=== PATIENT | female | born 1990 | race Two or more races ===

== ENCOUNTER 2017-09-30 14:17 | Emergency (ER) | payer MEDICAID ==
[~2017-09-30] VITALS: Ht 160 cm; Wt 98.9 kg
[2017-09-30 15:10] VITALS: BP 136/77
--- NOTE | 2017-09-30 15:18 | Emergency Room Report ---
History of Present Illness General Chief Complaint: Chest Pain Source: Patient Present Illness HPI 27-year-old female walks in with chief complaint of intermittent substernal sharp chest pain, 5/10, occurring intermittently since yesterday Pain started at work, worse with movement, reproducible No body aches, no fever or chills, no sick contacts, no headache no Recent trauma No history of asthma or COPD Not take any OTC meds Allergies: Coded Allergies: No Known Allergies (Unverified , 09/30/17) Patient History Past Medical History: none Past Surgical History: none Pertinent Family History: none Social History: Denies: smoking, alcohol use, drug use Last Menstrual Period: 09/15/2017 Now: No Immunizations: UTD Reviewed Nursing Documentation: PMH: Agreed, PSxH: Agreed Nursing Documentation-PMH Past Medical History: No Stated History Review of Systems All Other Systems: negative except mentioned in HPI Physical Exam Vital Signs Date Time Temp Pulse Resp B/P (MAP) Pulse Ox O2 Delivery O2 Flow Rate FiO2 09/30/17 14:20 97.9 103 18 130/70 98 Room Air Sp02 EP Interpretation: reviewed, normal General Appearance: normal inspection, well appearing, no apparent distress, alert, GCS 15, non-toxic Head: normocephalic, atraumatic Eyes: bilateral eye PERRL, bilateral eye EOMI ENT: normal ENT inspection, hearing grossly normal, normal pharynx, no angioedema, normal voice, TMs + canals normal, uvula midline, moist mucus membranes Neck: normal inspection, full range of motion, supple, thyroid normal, no meningismus, no bony tend Respiratory: normal inspection, lungs clear, normal breath sounds, no rhonchi, no respiratory distress, no retraction, no accessory muscle use, no wheezing, speaking full sentences, other - chest pain reproducible, chest symmetrical Cardiovascular #1: regular rate, rhythm, no edema, no JVD, normal capillary refill Gastrointestinal: normal inspection, normal bowel sounds, non tender, soft, no mass, no peritonitis, non-distended, no guarding, no hernia, no pulsatile mass Genitourinary: no CVA tenderness Musculoskeletal: normal inspection, back normal, normal range of motion, no calf tenderness, pelvis stable, Tete's Sign negative Neurologic: normal inspection, alert, oriented x3, responsive, merit system director III-XII nml as tested, motor strength/tone normal, cerebellar normal, normal gait, speech normal Psychiatric: normal inspection, judgement/insight normal, mood/affect normal, no suicidal/homicidal ideation, no delusions Skin: normal inspection, normal color, no rash Lymphatic: normal inspection, no adenopathy Medical Decision Making Diagnostic Impression: Primary Impression: Chest wall pain ER Course 27-year-old female with chest pain for 2 days Unlikely ACS or PE given well appearance, chest pain very reproducible, worse with movement, no tachypnea, no tachycardia, no hypoxia, no history of CAD risk factors ECG without ischemia Chest x-ray negative for pneumonia or pneumothorax Symptoms improved with NSAIDs ER course: Patient has remained stable during ED stay. Patient is to be discharged to home. Prescriptions given are motrin Patient is instructed to follow up with their primary care doctor within 5 days. Strict return precautions discussed with patient such as fever, chills, worsening/severe pain, nausea, vomiting, which may indicate severe illness. Patient verbalizes understanding and agrees with plan. Please note that this Emergency Department Report was dictated using [employer] operator assistant technology software, occasionally this can lead to erroneous entry secondary to interpretation by the dictation equipment EKG Diagnostic Results Rate: tachycardiac Rhythm: NSR ST Segments: no acute changes ASA given to the pt in ED: No Chest X-Ray Diagnostic Results Chest X-Ray Diagnostic Results : Chest X-Ray Ordered: Yes # of Views/Limited/Complete: 1 View Indication: Chest Pain EP Interpretation: Yes Interpretation: no consolidation, no effusion, no pneumothorax, no acute cardiopulmonary disease Impression: No acute disease Electronically Signed by: Dr Zaida Schilling MD Last Vital Signs Date Time Temp Pulse Resp B/P (MAP) Pulse Ox O2 Delivery O2 Flow Rate FiO2 09/30/17 15:10 107 15 136/77 99 Room Air 09/30/17 14:20 97.9 Status: improved Disposition: HOME, SELF-CARE Scripts Ibuprofen* (MOTRIN*) 800 Mg Tablet 800 MG ORAL THREE TIMES A DAY for chest pain for 7 Days, #30 TAB 0 Refills Prov: ZAIDA SCHILLING M.D. 09/30/17 Referrals: NON PHYSICIAN (PCP) ZAIDA SCHILLING M.D. Sep 30, 2017 15:17
[2017-09-30] MEDS ORDERED: IBUPROFEN800 MG ORAL (15:19)
[2017-09-30 15:59] VITALS: BP 121/66
--- NOTE | 2017-10-01 12:32 | Diagnostic Imaging Report ---
Indication: Pain Technique: XRAY Chest 1v Comparison: None Findings: Heart size and mediastinal contours are within normal limits given technique. There is no focal consolidation, pneumothorax or pleural effusion. Osseous structures demonstrate no acute abnormality. Impression: No radiographic evidence of acute cardiopulmonary disease.
--- NOTE | 2017-10-01 14:22 | Cardiology Report ---
APPROVED REPORT EKG Measurement Heart [id number] Sinus tachycardia Minimal voltage criteria for LVH, may be normal variant Septal infarct, age undetermined Abnormal ECG
== END 2017-09-30 15:59 | disposition home or self-care (01) ==
LOC: EMR 14:47
DX: R07.89 Other chest pain (principal)
CPT/HCPCS: 71010; 93005; 99283

== ENCOUNTER 2017-10-19 03:13 | Emergency (ER) | payer OTHER ==
[~2017-10-19] VITALS: Ht 157.5 cm; Wt 97.5 kg
[~2017-10-19 03:13] MED LIST: IBUPROFEN800 MG ORAL
[2017-10-19] MEDS ORDERED: ALBUTEROL SULF8.5 GM INH (03:40)
[2017-10-19] MEDS ORDERED: IBUPROFEN600 MG ORAL (03:40)
[2017-10-19] MEDS ORDERED: PREDNISONE20 MG ORAL (03:40)
--- NOTE | 2017-10-19 03:40 | Emergency Room Report ---
History of Present Illness General Chief Complaint: Upper Respiratory Illness Source: Patient Present Illness HPI Is a 27-year-old female with no past history. She presents with chief complaint of cough fever and chills. Onset for last 3 days. No nausea no vomiting. Cough is productive of phlegm. Complaining of chest pain from coughing. Also with sore throat headache. Has fever and chills. Pain is 10 out of 10. Allergies: Coded Allergies: No Known Allergies (Unverified , 09/30/17) Patient History Past Medical History: see triage record, old chart reviewed Past Surgical History: none Pertinent Family History: none Social History: Denies: smoking Last Menstrual Period: Sep Now: No Immunizations: other Reviewed Nursing Documentation: PMH: Agreed, PSxH: Agreed Nursing Documentation-PMH Past Medical History: No Stated History Review of Systems Constitutional: Reports: fever Eye: Denies: eye pain, blurred vision ENT: Reports: nose congestion, Denies: ear pain, throat swelling Respiratory: Reports: cough, Denies: shortness of breath Cardiovascular: Denies: chest pain, palpitations Gastrointestinal: Denies: abdominal pain, diarrhea, nausea, vomiting Musculoskeletal: Denies: back pain, joint pain Skin: Denies: rash Neurological: Denies: headache, numbness Endocrine: Denies: increased thirst, increased urine Hematologic/Lymphatic: Denies: easy bruising All Other Systems: negative except mentioned in HPI Physical Exam Vital Signs Date Time Temp Pulse Resp B/P (MAP) Pulse Ox O2 Delivery O2 Flow Rate FiO2 10/19/17 03:22 99.1 118 16 124/77 97 vitals with low-grade fever Sp02 EP Interpretation: reviewed, normal General Appearance: well appearing, no apparent distress, alert Head: normocephalic, atraumatic Eyes: bilateral eye PERRL, bilateral eye EOMI ENT: hearing grossly normal, normal pharynx Neck: full range of motion, supple, no meningismus Respiratory: chest non-tender, lungs clear, normal breath sounds, other - Coughing fits with inspiration Cardiovascular #1: regular rate, rhythm, no murmur Gastrointestinal: normal bowel sounds, non tender, no mass, no organomegaly, no bruit, non-distended Musculoskeletal: back normal, gait/station normal, normal range of motion Psychiatric: mood/affect normal Skin: warm/dry Medical Decision Making Diagnostic Impression: Primary Impression: Influenza-like illness ER Course Patient with influenza like illness with bronchospasm. No evidence of bacterial infection. No evidence of sepsis. She is outside the window for Tamiflu treatment. Better after nebulizer treatment. Last Vital Signs Date Time Temp Pulse Resp B/P (MAP) Pulse Ox O2 Delivery O2 Flow Rate FiO2 10/19/17 03:36 118 16 10/19/17 03:22 99.1 124/77 97 Status: improved Disposition: HOME, SELF-CARE Condition: Stable Scripts Prednisone* (PREDNISONE*) 20 Mg Tablet 60 MG ORAL DAILY, #12 TAB Prov: DUANE MANZANARES M.D. 10/19/17 Ibuprofen* (MOTRIN*) 600 Mg Tablet 600 MG ORAL Q8H Y for For Pain, #30 TAB 0 Refills Prov: DUANE MANZANARES M.D. 10/19/17 Albuterol Sulfate* (ALBUTEROL SULFATE MDI*) 8.5 Gm Hfa.aer.ad 2 PUFF INH Q4H Y for cough/wheezing, #1 EA 0 Refills Prov: DUNAE MANZANARES M.D. 10/19/17 Additional Instructions: Followup your DrAndi in 7 days. Increase fluid. Return if symptom worsen. DUANE MANZANARES M.D. Oct 19, 2017 03:40
[2017-10-19 03:42] VITALS: BP 124/77
[2017-10-19] MEDS ORDERED: Albuterol/Ipratropium 3ml neb HHN ONE (03:45)
== END 2017-10-19 03:50 | disposition home or self-care (01) ==
LOC: EMR 03:35
DX: J11.1 Influenza due to unidentified influenza virus with other respiratory manifestations (principal)
CPT/HCPCS: 94640; 94664; 99283; J7512; J7620

== ENCOUNTER 2018-02-12 23:26 | Emergency (ER) | payer MEDICAID, OTHER ==
[~2018-02-12] VITALS: Ht 160 cm; Wt 99.8 kg
[~2018-02-12 23:26] MED LIST changes: +ALBUTEROL SULF8.5 GM INH; +IBUPROFEN600 MG ORAL; +PREDNISONE20 MG ORAL
[2018-02-12 23:30] VITALS: BP 113/68
[2018-02-12 23:42] VITALS: BP 113/68
[2018-02-12] MEDS ORDERED: IBUPROFEN600 MG ORAL (23:47)
--- NOTE | 2018-02-12 23:48 | Emergency Room Report ---
History of Present Illness General Chief Complaint: Lower Back Pain or Injury Source: Patient Present Illness HPI Is a 27-year-old female with no past medical history. She presents with chief complaint of lower back pain. Onset this morning. This occur after she was helping her mom lifting a stove. There are moving. Since then she felt pain to the left lower back. Worse when she moves certain way. She thought that she may have dislocated her back. No other injury. Pain is 8 out of 10. No radiation. No incontinence of bowel or urine. No direct trauma. Allergies: Coded Allergies: No Known Allergies (Unverified , 09/30/17) Patient History Past Medical History: see triage record, old chart reviewed Past Surgical History: none Pertinent Family History: none Social History: Denies: smoking Last Menstrual Period: December Now: No Immunizations: other Reviewed Nursing Documentation: PMH: Agreed; PSxH: Agreed Nursing Documentation-PM Past Medical History: No Stated History Review of Systems Eye: Denies: eye pain, blurred vision ENT: Denies: ear pain, nose congestion, throat swelling Respiratory: Denies: cough, shortness of breath Cardiovascular: Denies: chest pain, palpitations Gastrointestinal: Denies: abdominal pain, diarrhea, nausea, vomiting Musculoskeletal: Reports: back pain; Denies: joint pain Skin: Denies: rash Neurological: Denies: headache, numbness Endocrine: Denies: increased thirst, increased urine Hematologic/Lymphatic: Denies: easy bruising All Other Systems: negative except mentioned in HPI Physical Exam Vital Signs Date Time Temp Pulse Resp B/P (MAP) Pulse Ox O2 Delivery O2 Flow Rate FiO2 02/12/ 23:30 98.6 77 16 113/68 97 Room Air 98.6 vitals normal Sp02 EP Interpretation: reviewed, normal General Appearance: well appearing, no apparent distress, alert Head: normocephalic, atraumatic Eyes: bilateral eye PERRL, bilateral eye EOMI ENT: hearing grossly normal, normal pharynx Neck: full range of motion, supple, no meningismus Respiratory: chest non-tender, lungs clear, normal breath sounds Cardiovascular #1: regular rate, rhythm, no murmur Gastrointestinal: normal bowel sounds, non tender, no mass, no organomegaly, no bruit, non-distended Musculoskeletal: back normal - tenderness over the left lower paraspinous muscle. No midline tenderness., gait/station normal, normal range of motion Psychiatric: mood/affect normal Skin: warm/dry Medical Decision Making Diagnostic Impression: Primary Impression: Lumbar strain Qualified Codes: S39.012A - Strain of muscle, fascia and tendon of lower back , initial encounter ER Course Patient with a back strain. No fracture or dislocation. No need for x-rays since there is no trauma. We'll discharge home. Last Vital Signs Date Time Temp Pulse Resp B/P (MAP) Pulse Ox O2 Delivery O2 Flow Rate FiO2 02/12/18 23:30 98.6 77 16 113/68 97 Room Air 98.6 Status: unchanged Disposition: HOME, SELF-CARE Condition: Stable Scripts Ibuprofen* (MOTRIN*) 600 Mg Tablet 600 MG ORAL THREE TIMES A DAY, #30 TAB 0 Refills Prov: DUANE MANZANARES M.D. 02/12/18 Patient Instructions: Lumbosacral Strain Additional Instructions: No heavy lifting. Follow-up your doctor in 7 days. Return of worse. DUANE MANZANARES M.D. Feb 12, 2018 23:48
== END 2018-02-13 00:05 | disposition home or self-care (01) ==
LOC: EMR 02-13 00:03
DX: S39.012A Strain of muscle, fascia and tendon of lower back, initial encounter (principal); X50.0XXA Overexertion from strenuous movement or load, initial encounter; Y92.9 Unspecified place or not applicable
CPT/HCPCS: 99283

== ENCOUNTER 2018-02-21 00:24 | Emergency (ER) | payer MEDICAID ==
[~2018-02-21] VITALS: Ht 157.5 cm; Wt 99.8 kg
[2018-02-21] MEDS ORDERED: IBUPROFEN600 MG ORAL (00:56)
[2018-02-21] MEDS ORDERED: ROBAXIN-750750 MG PO (00:56)
[2018-02-21] MEDS ORDERED: Methocarbamol 750mg tab ORAL ONE (01:00)
[2018-02-21 01:19] VITALS: BP 117/68
--- NOTE | 2018-02-21 04:18 | Emergency Room Report ---
History of Present Illness General Chief Complaint: Pain Source: Patient Present Illness HPI 27-year-old female presents ED complaining of right-sided rib pain 4 days. Denies trauma. Pain is sharp, 8 out of 10, nonradiating, worse with bending and twisting motion. Denies chest pain or shortness of breath. No other aggravating relieving factors. Denies any other associated symptoms Allergies: Coded Allergies: No Known Allergies (Unverified , 09/30/17) Patient History Past Medical History: none Past Surgical History: none Pertinent Family History: none Social History: Denies: smoking, alcohol use, drug use Last Menstrual Period: February Now: No Immunizations: UTD Reviewed Nursing Documentation: PMH: Agreed; PSxH: Agreed Nursing Documentation-PMH Past Medical History: No Stated History Review of Systems All Other Systems: negative except mentioned in HPI Physical Exam Vital Signs Date Time Temp Pulse Resp B/P (MAP) Pulse Ox O2 Delivery O2 Flow Rate FiO2 02/21/18 00:25 97.9 82 16 117/68 97 Room Air 97.9 Sp02 EP Interpretation: reviewed, normal General Appearance: no apparent distress, alert, GCS 15, non-toxic Head: normocephalic, atraumatic Eyes: bilateral eye normal inspection, bilateral eye PERRL ENT: hearing grossly normal, normal pharynx, no angioedema, normal voice Neck: full range of motion, supple/symm/no masses Respiratory: lungs clear, normal breath sounds, speaking full sentences, other - reproducible R sided rib pain Cardiovascular #1: regular rate, rhythm, no edema Cardiovascular #2: 2+ carotid (R), 2+ carotid (L), 2+ radial (R), 2+ radial (L) , 2+ dorsalis pedis (R), 2+ dorsalis pedis (L) Gastrointestinal: normal bowel sounds, non tender, soft, non-distended, no guarding, no rebound Rectal: deferred Genitourinary: normal inspection, no CVA tenderness Musculoskeletal: back normal, gait/station normal, normal range of motion, non- tender Neurologic: alert, oriented x3, responsive, motor strength/tone normal, sensory intact, speech normal Psychiatric: judgement/insight normal, memory normal, mood/affect normal, no suicidal/homicidal ideation Reflexes: 3+ bicep (R), 3+ bicep (L), 3+ tricep (R), 3+ tricep (L), 3+ knee (R) , 3+ knee (L) Skin: normal color, no rash, warm/dry, well hydrated Lymphatic: no adenopathy Medical Decision Making Diagnostic Impression: Primary Impression: Chest wall muscle strain Qualified Codes: S29.011A - Strain of muscle and tendon of front wall of thorax, initial encounter ER Course Hospital Course 27-year-old female presents ED complaining of right-sided rib pain, no trauma Differential diagnoses include: Fracture, dislocation, sprain Clinical course Patient placed on stretcher. After initial history, physical exam reveals an female in no acute distress. There is some tenderness to the lateral aspect of the ribs. no sternal tenderness. lungs clear. Stable vitals. Clinical presentation consistent with chest wall strain. Given Motrin and Robaxin in ED We'll prescribe Robaxin and Motrin Diagnosis - chest wall muscle strain stable and discharged to home with prescription for Motrin, robaxin. Followup with PMD. Return to ED if symptoms recur or worsen Last Vital Signs Date Time Temp Pulse Resp B/P (MAP) Pulse Ox O2 Delivery O2 Flow Rate FiO2 02/21/18 01:19 97.9 82 16 117/68 97 Room Air Status: improved Disposition: HOME, SELF-CARE Condition: Stable Scripts Methocarbamol* (ROBAXIN-750*) 750 Mg Tablet 750 MG PO TID, #21 TAB 0 Refills Prov: Nestor Marina MD 02/21/18 Ibuprofen* (MOTRIN*) 600 Mg Tablet 600 MG ORAL Q8H PRN for For Pain, #30 TAB 0 Refills Prov: Nestor Marina MD 02/21/18 [facility] ([facility]P) Patient Instructions: Chest Wall Pain, [id number] Nestor Marina MD February 21, 2018 04:17
== END 2018-02-21 01:20 | disposition home or self-care (01) ==
LOC: EMR 00:55
DX: S29.011A Strain of muscle and tendon of front wall of thorax, initial encounter (principal); X58.XXXA Exposure to other specified factors, initial encounter; Y92.9 Unspecified place or not applicable
CPT/HCPCS: 99284

== ENCOUNTER 2018-03-30 18:27 | Emergency (ER) | payer MEDICAID ==
[~2018-03-30] VITALS: Ht 160 cm; Wt 96.6 kg
[~2018-03-30 18:27] MED LIST changes: +ROBAXIN-750750 MG PO
--- NOTE | 2018-03-30 19:27 | Emergency Room Report ---
History of Present Illness General Chief Complaint: Lower Extremity Injury Source: Patient Present Illness HPI 27-year-old female presents emergency department complaining of 10 out of 10 in severity pain/tenderness and new onset large blisters to the plantar aspect of both feet. Patient states she does not recall doing anything different in particular other than walking barefoot earlier today. Patient states she isn't quite sure how long they've been there but her pain just started today. She states she does not know when her last tetanus vaccination was. Patient denies bleeding or open blisters that are draining. Denies lesions/rashes elsewhere on the body. Denies new medications or body washes or creams. Denies swelling of the lips, tongue , throat or airway. Denies wheezing, or shortness of breath. Denies recent travel, recent illness or ill contacts. denies blisters, oral lesions, or sloughing of the skin. Allergies: Coded Allergies: No Known Allergies (Unverified , 09/30/17) Patient History Past Medical History: see triage record Past Surgical History: none Pertinent Family History: none Last Menstrual Period: 02/15/18 Now: Yes - maybe : 2 Para: 2 Reviewed Nursing Documentation: PMH: Agreed; PSxH: Agreed Nursing Documentation-PMH Past Medical History: No Stated History Review of Systems All Other Systems: negative except mentioned in HPI Physical Exam Vital Signs Date Time Temp Pulse Resp B/P (MAP) Pulse Ox O2 Delivery O2 Flow Rate FiO2 03/30/18 18:35 98.3 120 22 115/69 96 Room Air 98.2 Sp02 EP Interpretation: reviewed, normal General Appearance: no apparent distress, alert, GCS 15, non-toxic Head: normocephalic, atraumatic ENT: hearing grossly normal, no angioedema, normal voice, other - no swelling of the lips or tongue Neck: full range of motion Respiratory: chest non-tender, lungs clear, normal breath sounds, no wheezing, speaking full sentences Cardiovascular #1: regular rate, rhythm, no edema, normal capillary refill Musculoskeletal: back normal, gait/station normal, normal range of motion, non- tender Neurologic: alert, oriented x3, responsive, motor strength/tone normal, sensory intact, normal gait, speech normal, grossly normal Psychiatric: judgement/insight normal Skin: normal color, warm/dry, well hydrated, other - two 3cm blisters noted to the plantar aspect one on each foot, mild erythema, not appreciably tense, negative niklosky sign, no other lesions noted. Medical Decision Making PA Attestation Dr. Manrique is my supervising Physician whom patient management has been discussed with. Diagnostic Impression: Primary Impression: Friction blisters of the soles Qualified Codes: S90.829A - Blister (nonthermal), unspecified foot, initial encounter ER Course 27-year-old female presents emergency department complaining of 10 out of 10 in severity pain/tenderness and new onset large blisters to the plantar aspect of both feet. Patient states she does not recall doing anything different in particular other than walking barefoot earlier today. Patient states she isn't quite sure how long they've been there but her pain just started today. She states she does not know when her last tetanus vaccination was. Patient denies bleeding or open blisters that are draining. Denies lesions/rashes elsewhere on the body. Denies new medications or body washes or creams. Denies swelling of the lips, tongue , throat or airway. Denies wheezing, or shortness of breath. Denies recent travel, recent illness or ill contacts. denies oral lesions, or sloughing of the skin. Ddx considered but are not limited to cellulitis, scabies, shingles, varicella, dermatitis, urticaria, eczema, tinea, viral exanthem, SJS Vital signs: are WNL, pt. is afebrile H&PE are most consistent with uncomplicated blisters. no evidence of SJS ORDERS: none required at this time, the diagnosis is clinical ED INTERVENTIONS: None required at this time. - Draining /aspiration not recommended at this time, skin intact, not appreciably tense. D/w pt. conservative treatment. and PCP follow up . recommended different shoes, and light duty no excessive walking x 1 week will give rx for abx. pt. does not want to wait for urine hcg, d/w pt. will rx abx that is safe during . DISCHARGE: At this time pt. is stable for d/c to home. Will provide printed patient care instructions, and any necessary prescriptions. Care plan and follow up instructions have been discussed with the patient prior to discharge. Last Vital Signs Date Time Temp Pulse Resp B/P (MAP) Pulse Ox O2 Delivery O2 Flow Rate FiO2 03/30/18 18:35 98.3 120 22 115/69 96 Room Air 98.2 Disposition: HOME, SELF-CARE Condition: Stable Scripts Bacitracin/Polymyxin B Sulfate (BACITRACIN-POLYMYXIN OINTMENT) 28.35 Gm Oint...g. 1 APPLIC TP BID, #28.3 GM Prov: Davina Fuentes 03/30/18 Cephalexin* (KEFLEX*) 500 Mg Capsule 500 MG ORAL EVERY 12 HOURS for 7 Days, #14 CAP 0 Refills Prov: Davina Fuentes 03/30/18 [facility]ERR[facility] (PCP) Departure Forms: Return to Work Return to Work Date: Mar 31, 2018 Work Restrictions: No Heavy Lifting, No Prolonged Standing Other Restrictions: light duty, no excessive walking or prolonged standing x 1 week. Return to Full Activity: Apr 06, 2018 Patient Instructions: Blisters Additional Instructions: Take medications as directed. Follow up with a Primary Care Provider in 3-5 days, even if your symptoms have resolved. Return sooner to ED if new symptoms occur, or current symptoms become worse. - Please note that this Emergency Department Report was dictated using [employer] Agency[employer]ated teller manager technology software, occasionally this can lead to erroneous entry secondary to interpretation by the dictation equipment. Davina Fuentes Mar 30, 2018 19:27
[2018-03-30] MEDS ORDERED: CEPHALEXIN500 MG ORAL (20:13)
[2018-03-30] MEDS ORDERED: BACITRACIN-P28.35 GM TP (20:13)
[2018-03-30 20:19] VITALS: BP 112/66
== END 2018-03-30 20:19 | disposition home or self-care (01) ==
LOC: EMR 18:59
DX: S90.821A Blister (nonthermal), right foot, initial encounter (principal); S90.822A Blister (nonthermal), left foot, initial encounter; X58.XXXA Exposure to other specified factors, initial encounter; Y93.9 Activity, unspecified; Y92.9 Unspecified place or not applicable
CPT/HCPCS: 99284

== ENCOUNTER 2018-04-06 11:48 | Emergency (ER) | payer MEDICAID ==
[~2018-04-06] VITALS: Ht 157.5 cm; Wt 97.1 kg
[~2018-04-06 11:48] MED LIST changes: +BACITRACIN-P28.35 GM TP; +CEPHALEXIN500 MG ORAL
[2018-04-06 12:07] VITALS: BP 102/67
--- NOTE | 2018-04-06 12:07 | Emergency Room Report ---
History of Present Illness General Chief Complaint: General Complaint Source: Patient Present Illness HPI 27-year-old female patient presents ER for follow-up of blisters on the bottom of both of her feet. patient was previously seen problems 1 week ago for similar symptoms, was prescribed topical and oral antibiotics at that time, states she completed full course of abx. reports symptoms have improved since previous visit, denies new or worsening symptoms. States she needs a work note to state that she no longer has restrictions, was not able to see her primary care provider today so came to the ER for work note. Denies fever or chest pain , shortness of breath, abdominal pain, rash or worsening symptoms. Denies skin sloughing, other skin lesions. Allergies: Coded Allergies: No Known Allergies (Unverified , 09/30/17) Patient History Past Medical History: see triage record Last Menstrual Period: february Reviewed Nursing Documentation: PMH: Agreed; PSxH: Agreed Nursing Documentation-PMH Past Medical History: No Stated History Review of Systems All Other Systems: negative except mentioned in HPI Physical Exam Vital Signs Date Time Temp Pulse Resp B/P (MAP) Pulse Ox O2 Delivery O2 Flow Rate FiO2 04/06/18 11:54 98.3 69 16 102/67 97 Room Air 98.2 Sp02 EP Interpretation: reviewed, normal General Appearance: well appearing, no apparent distress, alert, GCS 15, non- toxic Head: normocephalic, atraumatic Eyes: bilateral eye normal inspection, bilateral eye PERRL ENT: hearing grossly normal, normal pharynx, no angioedema, normal voice, uvula midline, moist mucus membranes Neck: full range of motion Respiratory: lungs clear, normal breath sounds, no rhonchi, no respiratory distress, no accessory muscle use, no wheezing, speaking full sentences Cardiovascular #1: regular rate, rhythm, no edema Musculoskeletal: back normal, digits/nails normal, gait/station normal, normal range of motion, non-tender Psychiatric: mood/affect normal Skin: other - 3 cm Healing blisters on the palmar aspect of feet, one on each foot, no fluctuance, negative Nikolsky sign, No drainage Medical Decision Making PA Attestation Dr. Manrique is my supervising Physician whom patient management has been discussed with. Diagnostic Impression: Primary Impression: Visit for wound check ER Course Pt. presents to the ED for followup of blisters on feet and requesting work note. multiple differentials considered. Vital signs: are WNL, pt. is afebrile ER COURSE: patient reports wound to feel well, denies sloughing of skin or active bleeding or drainage from wound site. Denies new or worsening of symptoms. No drainage or aspiration required at this time. Reports wounds have healed and she is able to walk normally without pain or difficulty. Requesting work note to return to normal duties. Will provide work note to return to normal activities. Instructed patient to continue with previous treatment recommended at previous visit, wear open shoes. F/u with PCP. DISCHARGE: At this time pt is stable for d/c to home. Patient is resting comfortably, in no acute distress, nontoxic appearing, talking without difficulty. Patient to take medications as instructed Will provide with patient care instructions and any necessary prescriptions. Care plan and follow-up instructions provided. Patient instructed to follow-up with primary care provider in 3 - 5 days. Patient questions asked and answered. Patient reports understanding and agreement to treatment plan. ER precautions given. Patient instructed to return to ER immediately for any new or worsening of symptoms including but not limited to increasing SOB, persistent fever, chest pain, intractable vomiting. - Please note that this Emergency Department Report was dictated using [employer] planner technology software, occasionally this can lead to erroneous entry secondary to interpretation by the dictation equipment. Last Vital Signs Date Time Temp Pulse Resp B/P (MAP) Pulse Ox O2 Delivery O2 Flow Rate FiO2 04/06/18 11:54 98.3 69 16 102/67 97 Room Air 98.2 Disposition: HOME, SELF-CARE Condition: Stable Patient Instructions: Blisters Additional Instructions: Followup with primary care provider in 3 -5 days. Continue to treat wounds as perviously instructed. Patient questions asked and answered. ER precautions given, patient instructed to return to ER immediately for any new or worsening of symptoms. Nathan Merrill Apr 06, 2018 12:07
[2018-04-06] MEDS ORDERED: Bacitracin Oint UD TOPIC ONE (12:15)
[2018-04-06 16:23] VITALS: BP 102/67
== END 2018-04-06 14:20 | disposition home or self-care (01) ==
LOC: EMR 12:24
DX: R23.8 Other skin changes (principal)
CPT/HCPCS: 99283

== ENCOUNTER 2018-06-07 23:57 | Emergency (ER) | payer MEDICAID ==
[~2018-06-07] VITALS: Ht 157.5 cm; Wt 105.2 kg
[2018-06-08] MEDS ORDERED: Mylanta II UD 30ml ORAL ONE (00:15)
--- NOTE | 2018-06-08 00:42 | Emergency Room Report ---
History of Present Illness General Chief Complaint: Complications Source: Patient Present Illness HPI Is a 28 year female 3, para 2, 16 weeks . She presents with chief complaint of epigastric pain with vomiting. This been ongoing problem during this . Tonight she came in because she noticed some blood in her vomit. Also with some spotting. This is also a chronic issue during this . Denies any fever chills. Pain is epigastric in nature. No radiation. No diarrhea. No abdominal pain. No cramping. No urinary complaint. She also complaining of right foot pain. She dropped the bed frame on her foot tonight. Throbbing in nature. Some abrasion. Able to walk however. Pain is 7 out of 10. Allergies: Coded Allergies: No Known Allergies (Unverified , 09/30/17) Patient History Past Medical History: see triage record, old chart reviewed Past Surgical History: other Pertinent Family History: none Last Menstrual Period: feb 15 2018 Now: Yes - 16 weeks : 3 Para: 3 Immunizations: other Reviewed Nursing Documentation: PMH: Agreed; PSxH: Agreed Nursing Documentation-PMH Past Medical History: No Stated History Review of Systems Eye: Denies: eye pain, blurred vision ENT: Denies: ear pain, nose congestion, throat swelling Respiratory: Denies: cough, shortness of breath Cardiovascular: Denies: chest pain, palpitations Gastrointestinal: Reports: nausea, vomiting; Denies: abdominal pain, diarrhea Musculoskeletal: Reports: joint pain, muscle pain; Denies: back pain Skin: Denies: rash Neurological: Denies: headache, numbness Endocrine: Denies: increased thirst, increased urine Hematologic/Lymphatic: Denies: easy bruising All Other Systems: negative except mentioned in HPI Physical Exam Vital Signs Date Time Temp Pulse Resp B/P (MAP) Pulse Ox O2 Delivery O2 Flow Rate FiO2 06/08/18 00:01 98.6 123 18 117/75 98 Room Air 98.6 vitals with tachycardia Sp02 EP Interpretation: reviewed, normal General Appearance: well appearing, no apparent distress, alert Head: normocephalic, atraumatic Eyes: bilateral eye PERRL, bilateral eye EOMI ENT: hearing grossly normal, normal pharynx Neck: full range of motion, supple, no meningismus Respiratory: chest non-tender, lungs clear, normal breath sounds Cardiovascular #1: regular rate, rhythm, no murmur Gastrointestinal: normal bowel sounds, non tender, no mass, no organomegaly, no bruit, non-distended, other - gravid Musculoskeletal: back normal, gait/station normal, normal range of motion, tender - TTP over dorsum of foot. mild abrasion Psychiatric: mood/affect normal Skin: warm/dry Medical Decision Making Diagnostic Impression: Primary Impression: Vomiting complicating Additional Impression: Contusion of right foot Qualified Codes: S90.31XA - Contusion of right foot, initial encounter ER Course Patient with vomiting and hematemesis. Labs stable. This probably secondary to vomiting from . No evidence of perforation. No evidence of obstruction. My bedside ultrasound showed a viable IUP with good movement and heart rate. Her elevated white count is probably secondary to being . No evidence of infection. Other X-Ray Diagnostic Results Other X-Ray Diagnostic Results : X-Ray ordered: right foot # of Views/Limited Vs Complete: 3 View Indication: Pain EP Interpretation: Yes Interpretation: no dislocation, no soft tissue swelling, no fractures Impression: No acute disease Electronically Signed by: Rudolph Carter MD Last Vital Signs Date Time Temp Pulse Resp B/P (MAP) Pulse Ox O2 Delivery O2 Flow Rate FiO2 06/08/18 00:01 98.6 123 18 117/75 98 Room Air 98.6 Status: improved Disposition: HOME, SELF-CARE Condition: Stable Scripts Nitrofurantoin Monohyd/M-Cryst (Nitrofurantoin [place]-Mcr 100 mg) 100 Mg Capsule 100 MG ORAL Q12H, #14 CAP Prov: RUDOLPH CARTER M.D. 06/08/18 Ondansetron (Zofran) 4 Mg Tablet 4 MG ORAL Q6H PRN for Nausea & Vomiting, #30 TAB 0 Refills Prov: RUDOLPH CARTER M.D. 06/08/18 Referrals: NON PHYSICIAN (PCP) Additional Instructions: Follow-up with your RETAIL SALES CONSULTANT within a week. Return if symptom worsen. RUDOLPH CARTER M.D. Jun 08, 2018 00:42
[2018-06-08 00:54] LABS: HEMATOCRIT 41.3 % (37.0-47.0); HEMOGLOBIN 13.9 G/DL (12.0-16.0); MEAN CORPUSCULAR VOLUME 91 FL (80-99); PLATELET COUNT 232 K/UL (150-450); RED BLOOD COUNT 4.54 M/UL (4.20-5.40); RED CELL DISTRIBUTION WIDTH 12.3 % (11.6-14.8); WHITE BLOOD COUNT 18.3 K/UL (4.8-10.8)
[2018-06-08 01:01] LABS: ANION GAP 12 mmol/L (5-15); BLOOD UREA NITROGEN 13 mg/dL (7-18); CALCIUM 9.4 MG/DL (8.5-10.1); CARBON DIOXIDE 25 MMOL/L (21-32); CHLORIDE 104 MMOL/L (98-107); CREATININE 0.7 MG/DL (0.55-1.30); POTASSIUM 3.4 MMOL/L (3.5-5.1); SODIUM 141 MMOL/L (136-145)
[2018-06-08] MEDS ORDERED: ZOFRAN4 MG ORAL (01:14)
[2018-06-08 01:38] LABS: BILIRUBIN, URINE NEGATIVE (NEGATIVE); GLUCOSE, URINE (UA) NEGATIVE (NEGATIVE); KETONES,URINE 3+ (NEGATIVE); LEUKOCYTE ESTERASE ,URINE 2+ (NEGATIVE); NITRITE,URINE NEGATIVE (NEGATIVE); PH,URINE 6 (4.5-8.0); PROTEIN,URINE 2+ (NEGATIVE); UROBILINOGEN,URINE NORMAL MG/DL (0.0-1.0)
[2018-06-08 01:48] LABS: APPEARANCE,URINE SLIGHTLY CLOUDY; COLOR,URINE YELLOW
[2018-06-08] MEDS ORDERED: cefTRIAXone 1 GM in NS 55 ML IVPB ONE (02:00)
[2018-06-08] MEDS ORDERED: MACROBID100 MG ORAL (02:00)
[2018-06-08 03:05] VITALS: BP 95/58
--- NOTE | 2018-06-08 10:07 | Diagnostic Imaging Report ---
Indication: Pain in right foot after dropping heavy wooden piece on earlier today Technique: 3 views right foot Comparison: none Findings: No acute fractures. No dislocations. The joint spaces are preserved. Impression: Negative
== END 2018-06-08 03:05 | disposition home or self-care (01) ==
LOC: EMR 06-08 00:36
DX: O21.8 Other vomiting complicating pregnancy (principal); K92.0 Hematemesis; O9A.212 Injury, poisoning and certain other consequences of external causes complicating pregnancy, second trimester; S90.31XA Contusion of right foot, initial encounter; Z3A.16 16 weeks gestation of pregnancy; W22.8XXA Striking against or struck by other objects, initial encounter; Y92.018 Other place in single-family (private) house as the place of occurrence of the external cause; O26.892 Other specified pregnancy related conditions, second trimester; M54.9 Dorsalgia, unspecified; M25.50 Pain in unspecified joint; M79.1 Myalgia
CPT/HCPCS: 36415; 73630; 80048; 81003; 85025; 87086; 96361; 96365; 96375; 99285; J0696; J2405

== ENCOUNTER 2018-06-10 07:34 | Emergency (ER) | payer MEDICAID ==
[~2018-06-10] VITALS: Ht 157.5 cm; Wt 105.2 kg
[~2018-06-10 07:34] MED LIST changes: +MACROBID100 MG ORAL; +ZOFRAN4 MG ORAL
[2018-06-10 08:00] VITALS: BP 116/69
[2018-06-10] MEDS ORDERED: Metoclopramide 10mg/2ml Inj IVP ONE (08:00)
[2018-06-10] MEDS ORDERED: DiphenhydrAMINE 50mg/ml Inj IVP ONE ×2 (08:00→14:30)
--- NOTE | 2018-06-10 08:01 | Emergency Room Report ---
History of Present Illness General Chief Complaint: Abdominal Pain Source: Patient Present Illness HPI Patient presents with complaints of epigastric discomfort reports that she was here 2 days ago with nausea vomiting She was told that she had a bladder infection was put on antibiotics Since then she has had increased pressure in the epigastric area and felt more nauseated and did vomit Denies any chest pain or shortness of breath denies any back or flank pain Denies any dysuria or frequency Patient is Allergies: Coded Allergies: No Known Allergies (Unverified , 09/30/17) Patient History Past Medical History: see triage record Pertinent Family History: none Reviewed Nursing Documentation: PMH: Agreed; PSxH: Agreed Nursing Documentation-PMH Past Medical History: No Stated History Review of Systems All Other Systems: negative except mentioned in HPI Physical Exam Vital Signs Date Time Temp Pulse Resp B/P (MAP) Pulse Ox O2 Delivery O2 Flow Rate FiO2 06/10/18 07:39 98.0 82 20 116/69 96 Room Air 98.1 Sp02 EP Interpretation: reviewed, normal General Appearance: well appearing, no apparent distress Head: normocephalic, atraumatic Eyes: bilateral eye PERRL, bilateral eye EOMI ENT: hearing grossly normal, normal pharynx, TMs + canals normal, uvula midline Neck: full range of motion, supple, no meningismus, no bony tend Respiratory: lungs clear, normal breath sounds, no rhonchi, no respiratory distress, no retraction, no accessory muscle use Cardiovascular #1: normal peripheral pulses, regular rate, rhythm, no edema, no gallop, no JVD, no murmur Gastrointestinal: normal bowel sounds, non tender - Subjectively however points to epigastric region, no organomegaly, non-distended, no guarding, no hernia, no rebound Genitourinary: no CVA tenderness Musculoskeletal: normal inspection Neurologic: oriented x3, responsive, mitochondrial disorders counselor III-XII nml as tested, motor strength/ tone normal, sensory intact Psychiatric: mood/affect normal Skin: normal color, no rash, warm/dry, palpation normal Lymphatic: normal inspection, no adenopathy Medical Decision Making Diagnostic Impression: Primary Impression: Biliary colic Additional Impression: Abdominal pain affecting ER Course With the patient's history and examination, multiple differentials considered, including but not limited to , ectopic , ovarian torsion, gastritis, cholecystitis, pancreatitis, appendicitis Patient's blood work was repeated from yesterday The white blood cell count has significantly improved however the patient's liver function tests appeared to be mildly elevated With this and the patient's epigastric discomfort ultrasounds obtained nonspecific findings No obvious gallbladder wall thickening however Patient had prolonged observation in the emergency room Continues to be appropriate with no signs of any vomiting Abdomen has improved as well Patient will have initial conservative outpatient trial She is discussed regarding returning to the ER with any increased fevers or vomiting , Labs Test 06/10/18 08:10 06/10/18 13:24 White Blood Count 9.3 K/UL (4.8-10.8) Red Blood Count 4.24 M/UL (4.20-5.40) Hemoglobin 13.0 G/DL (12.0-16.0) Hematocrit 38.6 % (37.0-47.0) Mean Corpuscular Volume 91 FL (80-99) Mean Corpuscular Hemoglobin 30.6 PG (27.0-31.0) Mean Corpuscular Hemoglobin Concent 33.7 G/DL (32.0-36.0) Red Cell Distribution Width 12.1 % (11.6-14.8) Platelet Count 203 K/UL (150-450) Mean Platelet Volume 10.1 FL (6.5-10.1) Neutrophils (%) (Auto) 63.7 % (45.0-75.0) Lymphocytes (%) (Auto) 23.2 % (20.0-45.0) Monocytes (%) (Auto) 10.5 % (1.0-10.0) Eosinophils (%) (Auto) 1.8 % (0.0-3.0) Basophils (%) (Auto) 0.8 % (0.0-2.0) Sodium Level 141 MMOL/L (136-145) 140 MMOL/L (136-145) Potassium Level 3.4 MMOL/L (3.5-5.1) 3.4 MMOL/L (3.5-5.1) Chloride Level 106 MMOL/L (98-107) 108 MMOL/L (98-107) Carbon Dioxide Level 26 MMOL/L (21-32) 24 MMOL/L (21-32) Anion Gap 9 mmol/L (5-15) 8 mmol/L (5-15) Blood Urea Nitrogen 7 mg/dL (7-18) 4 mg/dL (7-18) Creatinine 0.6 MG/DL (0.55-1.30) 0.5 MG/DL (0.55-1.30) Estimat Glomerular Filtration Rate > 60 mL/min (>60) > 60 mL/min (>60) Glucose Level 89 MG/DL (74-106) 84 MG/DL (74-106) Calcium Level 8.4 MG/DL (8.5-10.1) 8.3 MG/DL (8.5-10.1) Total Bilirubin 1.0 MG/DL (0.2-1.0) 0.8 MG/DL (0.2-1.0) Aspartate Amino Transf (AST/SGOT) 135 U/L (15-37) 122 U/L (15-37) Alanine Aminotransferase (ALT/SGPT) 137 U/L (12-78) 141 U/L (12-78) Alkaline Phosphatase 140 U/L (46-116) 146 U/L (46-116) Total Protein 6.5 G/DL (6.4-8.2) 5.9 G/DL (6.4-8.2) Albumin 2.6 G/DL (3.4-5.0) 2.4 G/DL (3.4-5.0) Globulin 3.9 g/dL 3.5 g/dL Albumin/Globulin Ratio 0.7 (1.0-2.7) 0.7 (1.0-2.7) Lipase 133 U/L (73-393) 144 U/L (73-393) CT/MRI/US Diagnostic Results CT/MRI/US Diagnostic Results : Impression abdominal ultrasoundIMPRESSION: Shadowing in the expected gallbladder fossa. May be from a gallbladder filled with gallstones. There is a broader differential. Last Vital Signs Date Time Temp Pulse Resp B/P (MAP) Pulse Ox O2 Delivery O2 Flow Rate FiO2 06/10/18 07:39 98.0 82 20 116/69 96 Room Air 98.1 Status: improved Disposition: HOME, SELF-CARE Condition: Improved Scripts Acetaminophen (Tylenol) 325 Mg Tablet 650 MG ORAL Q12HR PRN for Prn Pain/Headache/Temp > 101, #12 TAB 0 Refills Prov: Justus Piper DO 06/10/18 Metoclopramide Hcl* (REGLAN*) 10 Mg Tablet 10 MG ORAL BID, #12 TAB Prov: Justus Piper DO 06/10/18 Additional Instructions: Patient is provided with the discharge instructions notified to follow up with primary doctor in the next 2-3 days otherwise return to the er with any worsening symptoms. Please note that this report is being documented using [employer] technology. This can lead to erroneous entry secondary to incorrect interpretation by the dictating instrument. Justus Piper DO Jun 10, 2018 08:01
[2018-06-10 08:29] LABS: BASOPHILS % (AUTO) 0.8 % (0.0-2.0); EOSINOPHILS % (AUTO) 1.8 % (0.0-3.0); HEMATOCRIT 38.6 % (37.0-47.0); LYMPHOCYTES % (AUTO) 23.2 % (20.0-45.0); MEAN CORPUSCULAR VOLUME 91 FL (80-99); MONOCYTES % (AUTO) 10.5 % (1.0-10.0); NEUTROPHILS % (AUTO) 63.7 % (45.0-75.0); PLATELET COUNT 203 K/UL (150-450); RED BLOOD COUNT 4.24 M/UL (4.20-5.40); RED CELL DISTRIBUTION WIDTH 12.1 % (11.6-14.8); WHITE BLOOD COUNT 9.3 K/UL (4.8-10.8)
[2018-06-10 08:49] LABS: ANION GAP 9 mmol/L (5-15); BLOOD UREA NITROGEN 7 mg/dL (7-18); CALCIUM 8.4 MG/DL (8.5-10.1); CARBON DIOXIDE 26 MMOL/L (21-32); CHLORIDE 106 MMOL/L (98-107); CREATININE 0.6 MG/DL (0.55-1.30); POTASSIUM 3.4 MMOL/L (3.5-5.1); SODIUM 141 MMOL/L (136-145)
[2018-06-10 08:55] LABS: ALANINE AMINOTRANSFERASE 137 U/L (12-78); ALBUMIN 2.6 G/DL (3.4-5.0); ALBUMIN/GLOBULIN RATIO 0.7 (1.0-2.7); ALKALINE PHOSPHATASE 140 U/L (46-116); ASPARTATE AMINO TRANSFERASE 135 U/L (15-37)
[2018-06-10 12:00] VITALS: BP 112/65
--- NOTE | 2018-06-10 13:09 | Diagnostic Imaging Report ---
EXAM: US Abdomen Limited, Right Upper Quadrant CLINICAL HISTORY: PAIN TECHNIQUE: Real-time ultrasound of the right upper quadrant with image documentation. COMPARISON: No relevant prior studies available. FINDINGS: Liver: No discrete mass demonstrated. Gallbladder: Shadowing in the expected gallbladder fossa. Common bile duct: No biliary ductal dilatation. Pancreas: Pancreas is obscured. Right kidney: No hydronephrosis. IMPRESSION: Shadowing in the expected gallbladder fossa. May be from a gallbladder filled with gallstones. There is a broader differential.
[2018-06-10 13:41] LABS: ANION GAP 8 mmol/L (5-15); BLOOD UREA NITROGEN 4 mg/dL (7-18); CALCIUM 8.3 MG/DL (8.5-10.1); CARBON DIOXIDE 24 MMOL/L (21-32); CHLORIDE 108 MMOL/L (98-107); CREATININE 0.5 MG/DL (0.55-1.30); POTASSIUM 3.4 MMOL/L (3.5-5.1); SODIUM 140 MMOL/L (136-145)
[2018-06-10 13:46] LABS: ALANINE AMINOTRANSFERASE 141 U/L (12-78); ALBUMIN 2.4 G/DL (3.4-5.0); ALBUMIN/GLOBULIN RATIO 0.7 (1.0-2.7); ALKALINE PHOSPHATASE 146 U/L (46-116); ASPARTATE AMINO TRANSFERASE 122 U/L (15-37); BILIRUBIN,TOTAL 0.8 MG/DL (0.2-1.0)
[2018-06-10 14:00] VITALS: BP 112/65
[2018-06-10] MEDS ORDERED: REGLAN10 MG ORAL (14:17)
[2018-06-10] MEDS ORDERED: TYLENOL325 MG ORAL (14:29)
== END 2018-06-10 14:00 | disposition home or self-care (01) ==
LOC: EMR 07:50
DX: K80.50 Calculus of bile duct without cholangitis or cholecystitis without obstruction (principal)
CPT/HCPCS: 36415; 76705; 80053; 83690; 85025; 96374; 96375; 99284; J1200; J2765

== ENCOUNTER 2018-08-11 14:11 | Emergency (ER) | payer MEDICAID ==
[~2018-08-11] VITALS: Ht 160 cm; Wt 110.2 kg
[~2018-08-11 14:11] MED LIST changes: +REGLAN10 MG ORAL; +TYLENOL325 MG ORAL
[2018-08-11] MEDS ORDERED: CEPHALEXIN500 MG ORAL (14:56)
[2018-08-11 15:16] LABS: APPEARANCE,URINE CLOUDY; BILIRUBIN, URINE NEGATIVE (NEGATIVE); COLOR,URINE AMBER; GLUCOSE, URINE (UA) NEGATIVE (NEGATIVE); KETONES,URINE 3+ (NEGATIVE); LEUKOCYTE ESTERASE ,URINE 1+ (NEGATIVE); NITRITE,URINE NEGATIVE (NEGATIVE); PH,URINE 5 (4.5-8.0); PROTEIN,URINE 2+ (NEGATIVE); UROBILINOGEN,URINE 1 MG/DL (0.0-1.0)
--- NOTE | 2018-08-11 15:18 | Emergency Room Report ---
History of Present Illness General Chief Complaint: Female Urogenital Problems Source: Patient Present Illness HPI Patient is 28-year-old female who presented after increased urinary burning sensation. Of this occurred approximately 4 days. Patient prior history of urinary tract infection. Patient is presently 26 weeks . She is . Patient denies any fever. She had not been vomiting. The patient is not diabetic. She reports having normal movement. She denies any vaginal bleeding or vaginal discharge. She denies any leakage of fluid.The patient denies any other current symptoms. She had previously been on Keflex for urinary infection. Allergies: Coded Allergies: No Known Allergies (Unverified , 09/30/17) Patient History Past Medical History: see triage record Last Menstrual Period: 02/14/18 Now: Yes - 25 weeks : 3 Para: 2 Reviewed Nursing Documentation: PMH: Agreed; PSxH: Agreed Nursing Documentation-PMH Past Medical History: No Stated History Review of Systems All Other Systems: negative except mentioned in HPI Physical Exam Vital Signs Date Time Temp Pulse Resp B/P (MAP) Pulse Ox O2 Delivery O2 Flow Rate FiO2 08/11/18 14:19 98.2 96 18 117/68 98 Room Air Sp02 EP Interpretation: reviewed, normal General Appearance: normal inspection, well appearing, no apparent distress, alert, GCS 15 Head: atraumatic ENT: normal ENT inspection, hearing grossly normal, normal voice Neck: normal inspection, full range of motion, supple, no bony tend Respiratory: normal inspection, lungs clear, normal breath sounds, no respiratory distress, no retraction, no wheezing Cardiovascular #1: regular rate, rhythm, no edema Gastrointestinal: normal inspection, normal bowel sounds, non tender, soft, no guarding, no hernia, other - gravid uterus Genitourinary: no CVA tenderness Musculoskeletal: normal inspection, back normal, normal range of motion Neurologic: normal inspection, alert, oriented x3, responsive, heater planer operator III-XII nml as tested, speech normal Psychiatric: normal inspection, judgement/insight normal, mood/affect normal Skin: normal inspection, normal color, no rash Medical Decision Making Diagnostic Impression: Primary Impression: Urinary tract infection ER Course Patient presented for dysuria. Differential diagnosis included was not limited to appendicitis, urinary tract infection, pelvic inflammatory disease, urethritis, herpes among others. Patient has a benign exam and does not appear to require any further imaging or laboratory testing at this time. A urine test was noted be positive. Patient was noted to have a bedside ultrasound with normal cardiac heart rate.The patient be given a trial of oral antibiotics as an outpatient. The patient is advised to return if she began having increased fever persistent vomiting worsening pain or other concerns The patient is advised to follow up with FIBER DESIGN ENGINEER in 1-2 days. Patient is advised to return if any worsening condition or if any changes in status that are concerning. This report is dictated with [employer] management professional software which may occasionally lead to discrepancies related to use of this software. Labs Test 08/11/18 14:34 Urine HCG, Qualitative Positive (NEGATIVE) Last Vital Signs Date Time Temp Pulse Resp B/P (MAP) Pulse Ox O2 Delivery O2 Flow Rate FiO2 08/11/18 14:19 98.2 96 18 117/68 98 Room Air Status: improved Disposition: HOME, SELF-CARE Condition: Stable Scripts Cephalexin* (KEFLEX*) 500 Mg Capsule 500 MG ORAL EVERY 6 HOURS, #28 CAP Prov: Rajan Manrique MD 08/11/18 Patient Instructions: Urinary Tract Infection Rajan Manrique MD Aug 11, 2018 15:18
[2018-08-11 15:38] VITALS: BP 117/68
[2018-08-11 15:41] VITALS: BP 117/68
== END 2018-08-11 15:56 | disposition home or self-care (01) ==
LOC: EMR 14:41
DX: N39.0 Urinary tract infection, site not specified (principal)
CPT/HCPCS: 81003; 81025; 87086; 99283

== ENCOUNTER 2018-09-09 21:30 | Emergency (ER) | payer MEDICAID ==
[~2018-09-09] VITALS: Ht 157.5 cm; Wt 105.2 kg
[2018-09-09 21:48] VITALS: BP 126/75
--- NOTE | 2018-09-09 22:04 | Emergency Room Report ---
History of Present Illness General Chief Complaint: Pain Source: Patient Present Illness HPI History 29 weeks . 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 She's complaining about right ankle pain for last 2-3 days. It's worse with movement. It's lateral. There is no actual trauma. She's not taking any medication. She rates the pain as 7/10, aching nonradiating. There is no calf pain and no edema. Pain is rated 7/10 aching, worse with standing and twisting the ankle from side to side. The patient's baby has been moving. There is no vaginal discharge. No dysuria. No fevers, no nausea vomiting or diarrhea. LN February 2018. Her joints click when moved (all). Youngest 4 yo and oldest 12 yo. Allergies: Coded Allergies: No Known Allergies (Unverified , 09/30/17) Patient History Past Medical History: see triage record Social History: Denies: smoking Social History Narrative Negative care at [facility] Last Menstrual Period: february 2018 Now: Yes Reviewed Nursing Documentation: PMH: Agreed; PSxH: Agreed Nursing Documentation-PMH Past Medical History: No Stated History Review of Systems Constitutional: Denies: fever Gastrointestinal: Reports: see HPI Genitourinary: Reports: see HPI Musculoskeletal: Reports: see HPI Skin: Denies: rash Neurological: Reports: see HPI Physical Exam Vital Signs Date Time Temp Pulse Resp B/P (MAP) Pulse Ox O2 Delivery O2 Flow Rate FiO2 09/09/18 21:36 98.2 104 16 67/ 98 Room Air Sp02 EP Interpretation: reviewed, normal General Appearance: well appearing, no apparent distress, GCS 15 Head: normocephalic, atraumatic Eyes: bilateral eye normal inspection, bilateral eye PERRL ENT: hearing grossly normal, normal voice Neck: full range of motion, supple Respiratory: no respiratory distress, speaking full sentences Cardiovascular #1: regular rate, rhythm Cardiovascular #2: 2+ dorsalis pedis (R) Gastrointestinal: normal bowel sounds, other - gravid, non-tender Genitourinary: no CVA tenderness Musculoskeletal: digits/nails normal, normal range of motion, other - bilateral lateral ligament tenderness r ankle without instability Neurologic: alert, grossly normal Psychiatric: mood/affect normal Skin: no rash Medical Decision Making Diagnostic Impression: Primary Impression: Tendinitis Additional Impression: 29 weeks gestation of ER Course Patient presents with right ankle pain without trauma. She has repetitive heavy motion of and also she's 29 weeks . Differential includes tendinitis, strain, sprain, gout. Clinically this does not appear to be gout. There is no evidence of DVT at this time. I applied an Torin to the ankle and neurovascular is normal. There is some improvement. The patient is given a dose of Tylenol. The patient will be seen by her doctor on and is medically stable for outpatient observation and treatment. Last Vital Signs Date Time Temp Pulse Resp B/P (MAP) Pulse Ox O2 Delivery O2 Flow Rate FiO2 09/09/18 22:15 98.5 97 18 125/74 100 Room Air Status: improved Disposition: HOME, SELF-CARE Condition: Improved Scripts Acetaminophen (Tylenol) 325 Mg Tablet 650 MG ORAL Q6H PRN for Prn Pain/Headache/Temp > 101, #20 TAB 0 Refills Prov: Adair Ortega MD 09/09/18 Adair Ortega MD Sep 09, 2018 22:04
[2018-09-09] MEDS ORDERED: TYLENOL325 MG ORAL (22:06)
[2018-09-09 22:15] VITALS: BP 125/74
== END 2018-09-09 22:17 | disposition home or self-care (01) ==
LOC: EMR 22:03
DX: O26.893 Other specified pregnancy related conditions, third trimester (principal); M77.9 Enthesopathy, unspecified; Z3A.00 Weeks of gestation of pregnancy not specified; Z37.9 Outcome of delivery, unspecified
CPT/HCPCS: 99282

== ENCOUNTER 2018-11-22 03:47 | Emergency (ER) | payer MEDICAID ==
[~2018-11-22] VITALS: Ht 157.5 cm; Wt 117.9 kg
[2018-11-22 04:01] VITALS: BP 114/76
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
[2018-11-22] MEDS ORDERED: TYLENOL EXTRA500 MG ORAL (05:28)
[2018-11-22 05:36] VITALS: BP 114/76
--- NOTE | 2018-11-22 05:36 | NUR ---
ED Nurse Note: pt dc per ermd order, pt is aox4, pt was given dc and prscription insctrutions, pt was able to verbalize understasnding, id band removed,, pt is able to ambulate with steady gait, pt took all belongings when leaving ED. pt finger has been splint, pt given copy of xray
--- NOTE | 2018-11-22 10:56 | Diagnostic Imaging Report ---
Indication: Right hand pain Findings: 3 views of the right hand were obtained. There is a fracture of the fourth middle phalange nondisplaced involving the shaft of the bone extending close to if not involving the DIP joint. IMPRESSION: Acute fracture of the fourth middle phalange
--- NOTE | 2018-11-22 10:59 | Diagnostic Imaging Report ---
Indication: Foot Pain Comparison: None Findings: 3 views of the right foot were obtained. Acute fractures involving the base of the second metatarsal and third metatarsal demonstrated. The fracture appears to involve the Lisfranc ligament which is likely disrupted, given the lateral displacement of the second metatarsal base and comminution at the expected location of the Lisfranc ligament insertion onto the second metatarsal base. Probable fracture of the base of the third metatarsal also present. IMPRESSION: Acute fractures involving the second third and fourth metatarsal bases. Disruption of the Lisfranc ligament is expected.
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
== END 2018-11-22 05:36 | disposition home or self-care (01) ==
LOC: EMR 04:17
DX: S92.321A Displaced fracture of second metatarsal bone, right foot, initial encounter for closed fracture (principal); S92.331A Displaced fracture of third metatarsal bone, right foot, initial encounter for closed fracture; S92.341A Displaced fracture of fourth metatarsal bone, right foot, initial encounter for closed fracture; S62.622A Displaced fracture of middle phalanx of right middle finger, initial encounter for closed fracture; V49.9XXA Car occupant (driver) (passenger) injured in unspecified traffic accident, initial encounter; Y92.9 Unspecified place or not applicable
CPT/HCPCS: 29130; 99284

== ENCOUNTER 2018-12-05 18:39 | Emergency (ER) | payer MEDICAID ==
[~2018-12-05] VITALS: Ht 157.5 cm; Wt 108.4 kg
[~2018-12-05 18:39] MED LIST changes: +TYLENOL EXTRA500 MG ORAL
[2018-12-05] MEDS ORDERED: NKM (18:53)
[2018-12-05 19:00] VITALS: BP 141/84
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
[2018-12-05] MEDS ORDERED: Ketorolac 30mg Inj IM ONE (20:00)
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
[2018-12-05] MEDS ORDERED: FIORICET1 EA ORAL (20:07)
[2018-12-05] MEDS ORDERED: ROBAXIN-750750 MG PO (20:07)
[2018-12-05] MEDS ORDERED: Metoclopramide 10mg/2ml Inj IM ONE ×2 (20:15→22:00)
[2018-12-05 20:28] VITALS: BP 141/84
--- NOTE | 2018-12-05 20:28 | NUR ---
ED Nurse Note: Patient cleared cleared for discharge per ERMD. AO4. NAD. VSS. Patient given prescriptions and discharge instructions; patient verbalized understanding. ID removed. Patient ambulated steady out of ED with all belongings.
== END 2018-12-05 20:28 | disposition home or self-care (01) ==
LOC: EMR 19:08
DX: R51 Headache (principal); M79.10 Myalgia, unspecified site
CPT/HCPCS: 96372; 99283; J1885; J2765

== ENCOUNTER 2019-06-23 21:01 | Emergency (ER) | payer MEDICAID ==
[~2019-06-23] VITALS: Ht 157.5 cm; Wt 104.3 kg
[~2019-06-23 21:01] MED LIST changes: +FIORICET1 EA ORAL; +NKM
--- NOTE | 2019-06-23 21:05 | NUR ---
ED Nurse Note: Pt c/o n/v for past 2hr; pain RT flank side. Pt stated she had gallstones in 2018 and is having similar symptoms. ao4. nad. vss. family at bedside.
--- NOTE | 2019-06-23 21:26 | Emergency Room Report ---
History of Present Illness General Chief Complaint: Abdominal Pain Source: Patient Present Illness HPI This is a 29-year-old female with a history of gallstone. She presents with chief complaint of right upper quadrant and epigastric pain. Onset the last few hours. Radiating to her back. Has nausea and vomiting. No diarrhea. Pain is 7 out of 10. She had this problem when she was . Since then is been better since her delivery in October. Now will start coming back again. Denies any other complaint. No fever chills. has not seen primary care doctor for referral to see surgeon. Allergies: Coded Allergies: No Known Allergies (Unverified , 09/30/17) Patient History Past Medical History: see triage record, old chart reviewed Past Surgical History: other Pertinent Family History: none Social History: Denies: smoking Last Menstrual Period: current Now: No : 3 Para: 3 Immunizations: other Reviewed Nursing Documentation: PMH: Agreed; PSxH: Agreed Nursing Documentation-PMH Hx Gastrointestinal Problems: Yes - Gallbladder stone Review of Systems Eye: Denies: eye pain, blurred vision ENT: Denies: ear pain, nose congestion, throat swelling Respiratory: Denies: cough, shortness of breath Cardiovascular: Denies: chest pain, palpitations Gastrointestinal: Reports: abdominal pain, nausea, vomiting; Denies: diarrhea Musculoskeletal: Denies: back pain, joint pain Skin: Denies: rash Neurological: Denies: headache, numbness Endocrine: Denies: increased thirst, increased urine Hematologic/Lymphatic: Denies: easy bruising All Other Systems: negative except mentioned in HPI Physical Exam Vital Signs Date Time Temp Pulse Resp B/P (MAP) Pulse Ox O2 Delivery O2 Flow Rate FiO2 06/23/19 21:04 98.1 90 16 124/79 (94) 97 Room Air Vitals normal Sp02 EP Interpretation: reviewed, normal General Appearance: well appearing, no apparent distress, alert, obese Head: normocephalic, atraumatic Eyes: bilateral eye PERRL, bilateral eye EOMI ENT: hearing grossly normal, normal pharynx Neck: full range of motion, supple, no meningismus Respiratory: chest non-tender, lungs clear, normal breath sounds Cardiovascular #1: regular rate, rhythm, no murmur Gastrointestinal: normal bowel sounds, no mass, no organomegaly, no bruit, non- distended, tenderness - Right upper quadrant mild Musculoskeletal: back normal, gait/station normal, normal range of motion Psychiatric: mood/affect normal Medical Decision Making Diagnostic Impression: Primary Impression: Biliary colic Additional Impression: Urinary tract infection Qualified Codes: N30.00 - Acute cystitis without hematuria ER Course Patient presents with biliary colic. LFTs slightly elevated but no evidence of any obstruction. Bilirubin is normal. Lipase normal. Patient pain resolved now. Will discharge home. Last Vital Signs Date Time Temp Pulse Resp B/P (MAP) Pulse Ox O2 Delivery O2 Flow Rate FiO2 06/23/19 21:04 98.1 90 16 124/79 (94) 97 Room Air Status: improved Disposition: HOME, SELF-CARE Condition: Stable Scripts Nitrofurantoin Monohyd/M-Cryst (Nitrofurantoin [place]-Mcr 100 mg) 100 Mg Capsule 100 MG ORAL Q12H, #14 CAP Prov: Rudolph Carter MD 06/23/19 Ibuprofen* (MOTRIN*) 600 Mg Tablet 600 MG ORAL THREE TIMES A DAY, #30 TAB 0 Refills Prov: Rudolph Carter MD 06/23/19 Hydrocodone/Acetaminophen 5-325* (HYDROCODONE/ACETAMINOPHEN 5-325*) 1 Each Tablet 1 TAB ORAL Q6H PRN for For Pain, #20 TAB 0 Refills Prov: Rudolph Carter MD 06/23/19 Additional Instructions: Follow-up your doctor in 7 days. You may need a referral to see surgeon for surgery. Return if worse. Rudolph Carter MD Jun 23, 2019 21:26
[2019-06-23] MEDS ORDERED: Ketorolac 30mg Inj IV ONE (21:30)
--- NOTE | 2019-06-23 21:31 | NUR ---
ED Nurse Note: iv access established. blood and urine collected; sent down to lab.
[2019-06-23 21:44] LABS: APPEARANCE,URINE SLIGHTLY CLOUDY; BILIRUBIN, URINE NEGATIVE (NEGATIVE); COLOR,URINE AMBER; GLUCOSE, URINE (UA) NEGATIVE (NEGATIVE); KETONES,URINE NEGATIVE (NEGATIVE); LEUKOCYTE ESTERASE ,URINE 2+ (NEGATIVE); NITRITE,URINE NEGATIVE (NEGATIVE); PH,URINE 6.5 (4.5-8.0); PROTEIN,URINE 1+ (NEGATIVE); UROBILINOGEN,URINE 1 MG/DL (0.0-1.0)
[2019-06-23 21:45] VITALS: BP 124/79
[2019-06-23 21:49] LABS: BASOPHILS % (AUTO) 0.8 % (0.0-2.0); EOSINOPHILS % (AUTO) 1.4 % (0.0-3.0); HEMATOCRIT 37.8 % (37.0-47.0); HEMOGLOBIN 13.7 G/DL (12.0-16.0); LYMPHOCYTES % (AUTO) 32.7 % (20.0-45.0); MEAN CORPUSCULAR VOLUME 86 FL (80-99); NEUTROPHILS % (AUTO) 59.1 % (45.0-75.0); PLATELET COUNT 221 K/UL (150-450); RED CELL DISTRIBUTION WIDTH 10.8 % (11.6-14.8); WHITE BLOOD COUNT 10.1 K/UL (4.8-10.8)
[2019-06-23 22:03] LABS: ANION GAP 13 mmol/L (5-15); BLOOD UREA NITROGEN 7 mg/dL (7-18); CALCIUM 8.6 MG/DL (8.5-10.1); CARBON DIOXIDE 20 MMOL/L (21-32); CHLORIDE 109 MMOL/L (98-107); CREATININE 0.8 MG/DL (0.55-1.30); POTASSIUM 3.9 MMOL/L (3.5-5.1); SODIUM 141 MMOL/L (136-145)
[2019-06-23 22:07] LABS: ALANINE AMINOTRANSFERASE 109 U/L (12-78); ALBUMIN 3.6 G/DL (3.4-5.0); ALBUMIN/GLOBULIN RATIO 1.1 (1.0-2.7); ALKALINE PHOSPHATASE 114 U/L (46-116); ASPARTATE AMINO TRANSFERASE 145 U/L (15-37); BILIRUBIN,TOTAL 0.4 MG/DL (0.2-1.0)
[2019-06-23] MEDS ORDERED: IBUPROFEN600 MG ORAL (22:24)
[2019-06-23] MEDS ORDERED: MACROBID100 MG ORAL (22:24)
[2019-06-23] MEDS ORDERED: HYDROCODON-ACE1 EA15 ORAL (22:24)
--- NOTE | 2019-06-23 22:32 | NUR ---
ER DISCHARGE NOTE: Patient is cleared to be discharged per ERMD, pt is aox4, on room air, with stable vital signs. pt was given dc and prescription instructions, pt was able to verbalize understanding, pt id band and iv site removed without complications. pt is able to ambulate with steady gait. pt took all belongings.
[2019-06-23 22:33] VITALS: BP 126/76
== END 2019-06-23 22:33 | disposition home or self-care (01) ==
LOC: EMR 21:25
DX: K80.50 Calculus of bile duct without cholangitis or cholecystitis without obstruction (principal); N30.00 Acute cystitis without hematuria
CPT/HCPCS: 36415; 80053; 81003; 81025; 83690; 85025; 96361; 96374; 96375; J1885; J2405; Z7502; 99284

== ENCOUNTER 2020-04-07 04:59 | Emergency (ER) | payer MEDICAID ==
[~2020-04-07] VITALS: Ht 160 cm; Wt 92.1 kg
[~2020-04-07 04:59] MED LIST changes: +HYDROCODON-ACE1 EA15 ORAL
--- NOTE | 2020-04-07 05:20 | Emergency Room Report ---
History of Present Illness General Chief Complaint: Abdominal Pain Source: Patient, Medical Record Present Illness HPI This a 29-year-old female with a history of cholelithiasis. She presents with chief complaint of abdominal pain. Onset for 3 to 4 hours now. Pain is to the epigastric and right upper quadrant rating to her back. Pain is sharp. Pain is 8 out of 10. She has small episode of nausea and vomiting. No diarrhea. No fever chills. Similar symptoms in the past. Worse with eating. Better with rest. Allergies: Coded Allergies: No Known Allergies (Unverified , 09/30/17) COVID-19 Screening Contact w/high risk pt: No Recent Travel to affected area: No Experienced COVID-19 symptoms?: No COVID-19 Testing performed JEWEL SETTER: No Patient History Past Medical History: see triage record, old chart reviewed Past Surgical History: none Pertinent Family History: none Social History: Denies: smoking Last Menstrual Period: 03/28/20 Now: No : 3 Para: 3 Immunizations: other Reviewed Nursing Documentation: PMH: Agreed; PSxH: Agreed Nursing Documentation-PMH Hx Gastrointestinal Problems: Yes - gall stones Review of Systems Eye: Denies: eye pain, blurred vision ENT: Denies: ear pain, nose congestion, throat swelling Respiratory: Denies: cough, shortness of breath Cardiovascular: Denies: chest pain, palpitations Gastrointestinal: Reports: abdominal pain, nausea, vomiting; Denies: diarrhea Musculoskeletal: Denies: back pain, joint pain Skin: Denies: rash Neurological: Denies: headache, numbness Endocrine: Denies: increased thirst, increased urine Hematologic/Lymphatic: Denies: easy bruising All Other Systems: negative except mentioned in HPI Physical Exam Vital Signs Date Time Temp Pulse Resp B/P (MAP) Pulse Ox O2 Delivery O2 Flow Rate FiO2 04/07/20 05:04 98.1 66 19 111/67 (82) 98 Room Air Vitals normal Sp02 EP Interpretation: reviewed, normal General Appearance: well appearing, no apparent distress, alert Head: normocephalic, atraumatic Eyes: bilateral eye PERRL, bilateral eye EOMI ENT: hearing grossly normal, normal pharynx Neck: full range of motion, supple, no meningismus Respiratory: chest non-tender, lungs clear, normal breath sounds Cardiovascular #1: regular rate, rhythm, no murmur Gastrointestinal: normal bowel sounds, no mass, no organomegaly, no bruit, non- distended, tenderness - Right upper quadrant Musculoskeletal: back normal, normal range of motion, gait/station normal Psychiatric: mood/affect normal Medical Decision Making Diagnostic Impression: Primary Impression: Biliary colic ER Course Patient presents with abdominal pain consistent with biliary colic. Labs pending. Pain is well controlled now. If no evidence of obstruction or cholecystitis, will discharge home. Last Vital Signs Date Time Temp Pulse Resp B/P (MAP) Pulse Ox O2 Delivery O2 Flow Rate FiO2 04/07/20 05:04 98.1 66 19 111/67 (82) 98 Room Air Status: improved Disposition: HOME, SELF-CARE Condition: Stable Scripts Hydrocodone Bit/Acetaminophen 5-325* (NOR[place] 5-325 TABLET*) 1 Each Tablet 1 TAB ORAL Q6H PRN for FOR PAIN, #20 TAB 0 Refills Prov: Rudolph Carter MD 04/07/20 Additional Instructions: Follow-up with your doctor in 7 days. You may need a referral to see a surgeon for gallbladder surgery. Decrease fatty intake. Return if symptoms worsen. Rudolph Carter MD Apr 07, 2020 05:20
[2020-04-07 05:25] VITALS: BP 111/67
[2020-04-07] MEDS ORDERED: HYDROmorphone 1mg/ml Carpuject IVP ONE (05:30)
[2020-04-07 05:37] LABS: APPEARANCE,URINE CLEAR; BILIRUBIN, URINE NEGATIVE (NEGATIVE); COLOR,URINE PALE YELLOW; GLUCOSE, URINE (UA) NEGATIVE (NEGATIVE); KETONES,URINE NEGATIVE (NEGATIVE); LEUKOCYTE ESTERASE ,URINE NEGATIVE (NEGATIVE); NITRITE,URINE NEGATIVE (NEGATIVE); PH,URINE 6 (4.5-8.0); PROTEIN,URINE NEGATIVE (NEGATIVE); UROBILINOGEN,URINE NORMAL MG/DL (0.0-1.0)
[2020-04-07] MEDS ORDERED: NORCO 5-325 TA1 EAC1 ORAL (05:46)
[2020-04-07 05:57] LABS: BASOPHILS % (AUTO) 0.6 % (0.0-2.0); EOSINOPHILS % (AUTO) 0.8 % (0.0-3.0); HEMATOCRIT 41.4 % (37.0-47.0); HEMOGLOBIN 13.2 G/DL (12.0-16.0); LYMPHOCYTES % (AUTO) 15.2 % (20.0-45.0); MEAN CORPUSCULAR VOLUME 95 FL (80-99); MONOCYTES % (AUTO) 4.2 % (1.0-10.0); NEUTROPHILS % (AUTO) 79.2 % (45.0-75.0); PLATELET COUNT 237 K/UL (150-450); RED BLOOD COUNT 4.38 M/UL (4.20-5.40); RED CELL DISTRIBUTION WIDTH 12.7 % (11.6-14.8); WHITE BLOOD COUNT 13.1 K/UL (4.8-10.8)
[2020-04-07 06:01] VITALS: BP 107/59
[2020-04-07 06:17] LABS: ANION GAP 6 mmol/L (5-15); BLOOD UREA NITROGEN 10 mg/dL (7-18); CALCIUM 8.2 MG/DL (8.5-10.1); CARBON DIOXIDE 27 MMOL/L (21-32); CHLORIDE 107 MMOL/L (98-107); CREATININE 0.8 MG/DL (0.55-1.30); SODIUM 140 MMOL/L (136-145)
[2020-04-07 06:22] LABS: ALANINE AMINOTRANSFERASE 20 U/L (12-78); ALBUMIN 3.4 G/DL (3.4-5.0); ALBUMIN/GLOBULIN RATIO 1.1 (1.0-2.7); ALKALINE PHOSPHATASE 101 U/L (46-116); ASPARTATE AMINO TRANSFERASE 12 U/L (15-37); BILIRUBIN,TOTAL 0.2 MG/DL (0.2-1.0)
[2020-04-07 06:50] VITALS: BP 107/59
== END 2020-04-07 06:50 | disposition home or self-care (01) ==
LOC: EMR 05:20
DX: K80.50 Calculus of bile duct without cholangitis or cholecystitis without obstruction (principal)
CPT/HCPCS: 36415; 80053; 81003; 81025; 83690; 85025; 96361; 96374; 96375; J1170; J2405; J7030; Z7502; 99284

== ENCOUNTER 2020-05-09 13:53 | Emergency (ER) | payer MEDICAID ==
[~2020-05-09] VITALS: Ht 157.5 cm; Wt 95.7 kg
[~2020-05-09 13:53] MED LIST changes: +NORCO 5-325 TA1 EAC1 ORAL
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
--- NOTE | 2020-05-09 14:19 | Emergency Room Report ---
History of Present Illness General Chief Complaint: Lower Extremity Injury Source: Patient Present Illness HPI Disclaimer: Please note that this report is being documented using [employer] technology. This can lead to erroneous entry secondary to incorrect interpretation by the dictating instrument. HPI: 29-year-old female presents from home due to right foot pain. She has a history of a fracture in the right foot which has since been surgically repaired by podiatry. Surgery last month. Yesterday her daughter stepped on her foot. She complains of 8 out of 10 aching right foot pain worse with ambulation. She was having pain prior to the incident as well. 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 COVID-19 Screening: Negative COVID-19 COVID-19 Testing Source: nasopharynx Patient History Now: No Reviewed Nursing Documentation: PMH: Agreed; PSxH: Agreed Nursing Documentation-PMH Hx Gastrointestinal Problems: Yes - gall stones Review of Systems All Other Systems: negative except mentioned in HPI Physical Exam Vital Signs Date Time Temp Pulse Resp B/P (MAP) Pulse Ox O2 Delivery O2 Flow Rate FiO2 05/09/20 13:59 98.4 88 18 121/81 (94) 97 Room Air Sp02 EP Interpretation: reviewed, normal General Appearance: well appearing, no apparent distress Head: normocephalic, atraumatic Eyes: bilateral eye PERRL, bilateral eye EOMI ENT: hearing grossly normal, moist mucus membranes Neck: full range of motion, supple Respiratory: lungs clear, normal breath sounds, no rhonchi, no respiratory distress, no retraction, no wheezing Cardiovascular #1: normal peripheral pulses, regular rate, rhythm, no murmur Gastrointestinal: non tender, soft, non-distended, no guarding Musculoskeletal: other - Healing surgical site noted to right foot, pulses and sensation intact, mild swelling noted. No deformity. Neurologic: alert, oriented x3, no focal defects Skin: normal color, warm/dry Medical Decision Making Diagnostic Impression: Primary Impression: Contusion of right foot ER Course MDM: Patient presented for right foot pain. She has a history of recent surgical repair of a right foot fracture. On my exam patient's foot mildly swollen. Differential included but not limited to contusion, postsurgical pain , less likely acute fracture or infectious process. X-ray ordered and showed no acute fracture dislocation. Patient had a dressing applied to his surgical wounds. Was instructed to rest ice and elevate the extremity. Instructed to follow-up with her electrician yard on Monday. Return precautions given. Other X-Ray Diagnostic Results Other X-Ray Diagnostic Results : X-Ray ordered: Right foot # of Views/Limited Vs Complete: 3 View Indication: Pain Interpretation: no dislocation, no fractures Impression: No acute disease Electronically Signed by: Adilson Webb MD Last Vital Signs Date Time Temp Pulse Resp B/P (MAP) Pulse Ox O2 Delivery O2 Flow Rate FiO2 05/09/20 13:59 98.4 88 18 121/81 (94) 97 Room Air Disposition: HOME, SELF-CARE Condition: Stable Referrals: [facility] (PCP) Adilson Webb M.D. May 09, 2020 14:19
--- NOTE | 2020-05-09 14:41 | NUR ---
ED Nurse Note: X ray done
--- NOTE | 2020-05-09 15:46 | Diagnostic Imaging Report ---
EXAM: XR Right Foot Complete, 3 or More Views CLINICAL HISTORY: PAIN TECHNIQUE: Frontal, lateral and oblique views of the right foot. COMPARISON: Right foot radiographs on 11/22/2018 FINDINGS: Bones/joints: No displaced fracture or dislocation identified. Prior postsurgical changes in the proximal aspects of the right second and third metatarsals and cuneiforms. Osteopenia. Soft tissues: Soft tissue swelling. IMPRESSION: 1. No displaced fracture or dislocation identified. 2. Changes from prior surgery for prior Lisfranc injury.
[2020-05-09 16:08] VITALS: BP 121/81
--- NOTE | 2020-05-09 16:09 | NUR ---
ED Nurse Note: Pt cleared by health care Provider for discharge. DC instructions/prescription was given and explained to pt and verbalized understanding of teachings. All medical deviecs such as ID band removed. Pt is AAO x4, ambulatory and left with all personal belongings.
== END 2020-05-09 16:09 | disposition home or self-care (01) ==
LOC: EMR 14:10
DX: S90.31XA Contusion of right foot, initial encounter (principal); X58.XXXA Exposure to other specified factors, initial encounter; Y92.9 Unspecified place or not applicable
CPT/HCPCS: 73630; Z7502; 99283

== ENCOUNTER 2020-05-18 20:34 | Emergency (ER) | payer MEDICAID ==
[~2020-05-18] VITALS: Ht 160 cm; Wt 95.7 kg
[2020-05-18 20:40] VITALS: BP 112/76
[2020-05-18] MEDS ORDERED: Meclizine 25mg tab ORAL ONE (21:00)
[2020-05-18] MEDS ORDERED: Metoclopramide 10mg/2ml Inj IVP ONE (21:00)
[2020-05-18 21:21] LABS: BASOPHILS % (AUTO) 0.8 % (0.0-2.0); EOSINOPHILS % (AUTO) 1.7 % (0.0-3.0); HEMATOCRIT 37.9 % (37.0-47.0); HEMOGLOBIN 12.4 G/DL (12.0-16.0); MEAN CORPUSCULAR VOLUME 92 FL (80-99); MONOCYTES % (AUTO) 7.3 % (1.0-10.0); NEUTROPHILS % (AUTO) 58.1 % (45.0-75.0); PLATELET COUNT 236 K/UL (150-450); RED BLOOD COUNT 4.13 M/UL (4.20-5.40); RED CELL DISTRIBUTION WIDTH 13.1 % (11.6-14.8); WHITE BLOOD COUNT 11.1 K/UL (4.8-10.8)
[2020-05-18 21:31] LABS: ANION GAP 8 mmol/L (5-15); BLOOD UREA NITROGEN 13 mg/dL (7-18); CARBON DIOXIDE 27 MMOL/L (21-32); CHLORIDE 107 MMOL/L (98-107); CREATININE 0.8 MG/DL (0.55-1.30); POTASSIUM 3.5 MMOL/L (3.5-5.1); SODIUM 142 MMOL/L (136-145)
[2020-05-18 21:32] LABS: APPEARANCE,URINE SLIGHTLY CLOUDY; BILIRUBIN, URINE NEGATIVE (NEGATIVE); COLOR,URINE PALE YELLOW; GLUCOSE, URINE (UA) NEGATIVE (NEGATIVE); KETONES,URINE NEGATIVE (NEGATIVE); LEUKOCYTE ESTERASE ,URINE 2+ (NEGATIVE); NITRITE,URINE NEGATIVE (NEGATIVE); PH,URINE 6 (4.5-8.0); PROTEIN,URINE NEGATIVE (NEGATIVE); UROBILINOGEN,URINE NORMAL MG/DL (0.0-1.0)
[2020-05-18 21:35] LABS: ALANINE AMINOTRANSFERASE 12 U/L (12-78); ALBUMIN 3.9 G/DL (3.4-5.0); ALBUMIN/GLOBULIN RATIO 1.3 (1.0-2.7); ALKALINE PHOSPHATASE 99 U/L (46-116); ASPARTATE AMINO TRANSFERASE 8 U/L (15-37); BILIRUBIN,TOTAL 0.1 MG/DL (0.2-1.0)
[2020-05-18 21:40] VITALS: BP 118/77
[2020-05-18] MEDS ORDERED: VERTICALM25 MG ORAL ×2 (22:03)
[2020-05-18] MEDS ORDERED: REGLAN10 MG ORAL ×2 (22:03)
[2020-05-18 22:05] VITALS: BP 115/80
--- NOTE | 2020-05-18 22:20 | Emergency Room Report ---
History of Present Illness General Chief Complaint: Dizziness Source: Patient Present Illness Allergies: Coded Allergies: No Known Allergies (Unverified , 09/30/17) COVID-19 Screening Contact w/high risk pt: No Recent Travel to affected area: No Experienced COVID-19 symptoms?: No COVID-19 Testing performed DYE RANGE FEEDER: No Patient History Last Menstrual Period: 05/18/20 Now: No Nursing Documentation-[facility] Past Medical History: No History, Except For Hx Gastrointestinal Problems: Yes - gall stones Physical Exam Vital Signs Date Time Temp Pulse Resp B/P (MAP) Pulse Ox O2 Delivery O2 Flow Rate FiO2 05/18/20 20:38 98.2 90 19 112/76 (88) 99 Room Air Medical Decision Making Diagnostic Impression: Primary Impression: Vertigo Last Vital Signs Date Time Temp Pulse Resp B/P (MAP) Pulse Ox O2 Delivery O2 Flow Rate FiO2 05/18/20 20:38 98.2 90 19 112/76 (88) 99 Room Air Disposition: HOME, SELF-CARE Condition: Stable Scripts Metoclopramide Hcl* (REGLAN*) 10 Mg Tablet 10 MG ORAL THREE TIMES A DAY, #15 TAB Prov: Nestor Marina MD 05/18/20 Meclizine Hcl* (VERTICALM*) 25 Mg Tablet 25 MG ORAL THREE TIMES A DAY, #30 TAB Prov: Nestor Marina MD 05/18/20 Departure Forms: Return to Work Return to Work Date: May 20, 2020 Work Restrictions: No Heavy Lifting Patient Instructions: Vertigo, Arielle Maneuver Self-Care Nestor Marina MD May 18, 2020 22:20
== END 2020-05-18 22:05 | disposition home or self-care (01) ==
LOC: EMR 20:59
DX: R42 Dizziness and giddiness (principal)
CPT/HCPCS: 36415; 80053; 81003; 81025; 85025; 87086; 87181; 96361; 96374; J2765; J7030; Z7502; 99284

== ENCOUNTER 2020-06-15 13:59 | Emergency (ER) | payer MEDICAID ==
[~2020-06-15] VITALS: Ht 160 cm; Wt 97.1 kg
[~2020-06-15 13:59] MED LIST changes: +IBUPROFEN600 M1 ORAL; +VERTICALM25 MG ORAL
--- NOTE | 2020-06-15 14:08 | NUR ---
ED Nurse Note: Pt ambulated to ed c/o right ear pain, no drainage.
[2020-06-15 14:09] VITALS: BP 139/76
--- NOTE | 2020-06-15 14:37 | Emergency Room Report ---
History of Present Illness General Chief Complaint: Earache Source: Patient Present Illness HPI 30 YO female presents to the ED C/o 07/25 in severity right ear pain progressive since last night. Pt. denies ear trauma. Pt. reports feeling "wet" sensation in the right ear. She reports pain with palpation of the external portion of her ear. Is or chills. She denies neck pain. She denies nasal congestion or headache. Patient denies dizziness. Patient denies changes in hearing. Patient denies Q-tip use. No other aggravating or relieving factors at this time. Allergies: Coded Allergies: No Known Allergies (Unverified , 09/30/17) COVID-19 Screening Contact w/high risk pt: No Recent Travel to affected area: No Experienced COVID-19 symptoms?: No COVID-19 Testing performed SUPERVISOR SHRIMP POND: No Patient History Past Medical History: see triage record Past Surgical History: none Pertinent Family History: none Last Menstrual Period: 06/11/20 Now: No Reviewed Nursing Documentation: PMH: Agreed; PSxH: Agreed Nursing Documentation-PMH Past Medical History: No Stated History Hx Cardiac Problems: No Hx Hypertension: No Hx Pacemaker: No Hx Asthma: No Hx COPD: No Hx Diabetes: No Hx Cancer: No Hx Gastrointestinal Problems: Yes - gall stones Hx Dialysis: No Hx Neurological Problems: No Hx Cerebrovascular Accident: No Hx Seizures: No Review of Systems All Other Systems: negative except mentioned in HPI Physical Exam Vital Signs Date Time Temp Pulse Resp B/P (MAP) Pulse Ox O2 Delivery O2 Flow Rate FiO2 06/15/20 14:04 98.1 80 16 139/76 (97) 99 Room Air Sp02 EP Interpretation: reviewed, normal General Appearance: no apparent distress, alert, GCS 15, non-toxic Head: normocephalic, atraumatic Eyes: bilateral eye normal inspection, bilateral eye PERRL ENT: hearing grossly normal, normal voice, other - RIght Canal is swollen, has macerated appearance and milky white DC noted. TM is WNL. The left canal and TM are WNL Neck: full range of motion, no meningismus, no bony tend Respiratory: lungs clear, normal breath sounds, no wheezing, speaking full sentences Cardiovascular #1: regular rate, rhythm Gastrointestinal: non tender, soft Musculoskeletal: normal range of motion, gait/station normal, non-tender Neurologic: alert, motor strength/tone normal, oriented x3, sensory intact, responsive, speech normal Psychiatric: judgement/insight normal Skin: no rash, normal color Lymphatic: no adenopathy Medical Decision Making PA Attestation Dr. Wesley is my supervising Physician whom patient management has been discussed with. Diagnostic Impression: Primary Impression: Otitis externa Qualified Codes: H60.8X1 - Other otitis externa, right ear ER Course 30 YO female presents to the ED C/o 07/25 in severity right ear pain progressive since last night. Pt. denies ear trauma. Pt. reports feeling "wet" sensation in the right ear. She reports pain with palpation of the external portion of her ear. Is or chills. She denies neck pain. She denies nasal congestion or headache. Patient denies dizziness. Patient denies changes in hearing. Patient denies Q-tip use. No other aggravating or relieving factors at this time. Ddx considered but are not limited to OM, OE, mastoiditis, TM perforation, FB, shingles just to name a few. Vital signs: are WNL, pt. is afebrile H&PE are most consistent with otitis Externa ORDERS: none required at this time, the diagnosis is clinical ED INTERVENTIONS: None required at this time. DISCHARGE: At this time pt. is stable for d/c to home. With PO ABX. Will provide printed patient care instructions, and any necessary prescriptions. Care plan and follow up instructions have been discussed with the patient prior to discharge. Last Vital Signs Date Time Temp Pulse Resp B/P (MAP) Pulse Ox O2 Delivery O2 Flow Rate FiO2 06/15/20 14:09 98.1 69 16 139/76 99 Room Air Disposition: HOME, SELF-CARE Condition: Stable Scripts Acetaminophen* (TYLENOL EXTRA STRENGTH*) 500 Mg Tablet 500 MG ORAL Q6H, #30 TAB 0 Refills Prov: Davina Fuentes 06/15/20 Ciprofloxacin/Hydrocortisone (CIPRO HC OTIC SUSPENSION) 10 Ml Drops.susp 7 DROP OT TID, #10 ML Prov: Davina Fuentes 06/15/20 Referrals: NON PHYSICIAN (PCP) Patient Instructions: Otitis Externa, [id number] Additional Instructions: Take medications as directed. Follow up with a Primary Care Provider in 3-5 days, even if your symptoms have resolved. Return sooner to ED if new symptoms occur, or current symptoms become worse. - Please note that this Emergency Department Report was dictated using [employer] machine system technician technology software, occasionally this can lead to erroneous entry secondary to interpretation by the dictation equipment. Davina Fuentes Jun 15, 2020 14:37
--- NOTE | 2020-06-15 14:37 | NUR ---
ER DISCHARGE NOTE: Patient is cleared to be discharged per ERMD, pt is aox4, on room air, with stable vital signs. pt was given dc and prescription instructions, pt was able to verbalize understanding, pt id band removed. pt is able to ambulate with steady gait. pt took all belongings.
[2020-06-15 14:38] VITALS: BP 134/76
[2020-06-15] MEDS ORDERED: TYLENOL EXTRA500 MG ORAL (14:40)
[2020-06-15] MEDS ORDERED: CIPRO HC OTIC S10 M1 OT (14:40)
== END 2020-06-15 14:48 | disposition home or self-care (01) ==
LOC: EMR 14:20
DX: H60.8X1 Other otitis externa, right ear (principal)
CPT/HCPCS: 99282

== ENCOUNTER 2020-07-10 00:43 | Emergency (ER) | payer MEDICAID ==
[~2020-07-10] VITALS: Ht 160 cm; Wt 99.8 kg
[~2020-07-10 00:43] MED LIST changes: +CIPRO HC OTIC S10 M1 OT
[2020-07-10 00:57] VITALS: BP 122/76
[2020-07-10] MEDS ORDERED: Bacitracin Oint UD TOPIC ONE (01:45)
[2020-07-10] MEDS ORDERED: Acetaminophen 500mg (ES) tab ORAL ONE (01:45)
[2020-07-10] MEDS ORDERED: Lidocaine 1% 10mg/ml/Epi 0.005mg/ml 30ml vial INJ ONE (01:45)
[2020-07-10] MEDS ORDERED: Ketorolac 30mg Inj IM ONE (02:00)
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
[2020-07-10 02:09] LABS: APPEARANCE,URINE CLEAR; BILIRUBIN, URINE NEGATIVE (NEGATIVE); COLOR,URINE PALE YELLOW; GLUCOSE, URINE (UA) NEGATIVE (NEGATIVE); KETONES,URINE NEGATIVE (NEGATIVE); LEUKOCYTE ESTERASE ,URINE 1+ (NEGATIVE); NITRITE,URINE NEGATIVE (NEGATIVE); PH,URINE 6 (4.5-8.0); PROTEIN,URINE NEGATIVE (NEGATIVE); UROBILINOGEN,URINE NORMAL MG/DL (0.0-1.0)
[2020-07-10 02:45] VITALS: BP 116/73
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
[2020-07-10] MEDS ORDERED: BACITRACIN15 GM TOPIC (03:46)
[2020-07-10] MEDS ORDERED: NORCO 5-325 TA1 EAC1 ORAL (03:46)
[2020-07-10] MEDS ORDERED: IBUPROFEN600 M1 ORAL (03:46)
[2020-07-10 03:55] VITALS: BP 119/82
== END 2020-07-10 03:55 | disposition home or self-care (01) ==
LOC: EMR 01:15
DX: S01.81XA Laceration without foreign body of other part of head, initial encounter (principal); S09.90XA Unspecified injury of head, initial encounter; Y04.2XXA Assault by strike against or bumped into by another person, initial encounter; Y93.9 Activity, unspecified; Y92.9 Unspecified place or not applicable; Z72.89 Other problems related to lifestyle
CPT/HCPCS: 12011; 70486; 81001; 81025; 96372; J1885; Z7502; 99284

== ENCOUNTER 2020-08-23 04:59 | Emergency (ER) | payer MEDICAID ==
[~2020-08-23] VITALS: Ht 160 cm; Wt 98.0 kg
[~2020-08-23 04:59] MED LIST changes: +BACITRACIN15 GM TOPIC
--- NOTE | 2020-08-23 05:14 | Emergency Room Report ---
History of Present Illness General Chief Complaint: Lower Extremity Injury Source: Patient Present Illness HPI This is a 30-year-old female who had previous right foot injury with surgery. She recently had pins removed about 3 months ago. She is still wearing orthopedic shoes. She says she is walking down the steps and slipped and twisted her ankle and foot. Now is there is some swelling. Still able to walk on it. Pain is 7 out of 10. No nausea no vomiting. No fever chills but no other injury. Worse with walking. Better with rest. Allergies: Coded Allergies: No Known Allergies (Unverified , 09/30/17) COVID-19 Screening Contact w/high risk pt: No Recent Travel to affected area: No Experienced COVID-19 symptoms?: No COVID-19 Testing performed PRODUCT MGR: No Patient History Past Medical History: see triage record, old chart reviewed Past Surgical History: other Pertinent Family History: none Social History: Denies: smoking Now: No Immunizations: other Reviewed Nursing Documentation: PMH: Agreed; PSxH: Agreed Nursing Documentation-PMH Hx Cardiac Problems: No - right foot fracture Hx Hypertension: No Hx Pacemaker: No Hx Asthma: No Hx COPD: No Hx Diabetes: No Hx Cancer: No Hx Gastrointestinal Problems: Yes - gall stones Hx Dialysis: No Hx Neurological Problems: No Hx Cerebrovascular Accident: No Hx Seizures: No Review of Systems Eye: Denies: eye pain, blurred vision ENT: Denies: ear pain, nose congestion, throat swelling Respiratory: Denies: cough, shortness of breath Cardiovascular: Denies: chest pain, palpitations Gastrointestinal: Denies: abdominal pain, diarrhea, nausea, vomiting Musculoskeletal: Reports: joint pain; Denies: back pain Skin: Denies: rash Neurological: Denies: headache, numbness Endocrine: Denies: increased thirst, increased urine Hematologic/Lymphatic: Denies: easy bruising All Other Systems: negative except mentioned in HPI Physical Exam Vital Signs Date Time Temp Pulse Resp B/P (MAP) Pulse Ox O2 Delivery O2 Flow Rate FiO2 08/23/20 05:03 97.9 78 18 136/79 (98) 98 Room Air Vitals normal Sp02 EP Interpretation: reviewed, normal General Appearance: well appearing, no apparent distress, alert Head: normocephalic, atraumatic Eyes: bilateral eye PERRL, bilateral eye EOMI ENT: hearing grossly normal, normal pharynx Neck: full range of motion, supple, no meningismus Respiratory: chest non-tender, lungs clear, normal breath sounds Cardiovascular #1: regular rate, rhythm, no murmur Gastrointestinal: normal bowel sounds, non tender, no mass, no organomegaly, no bruit, non-distended Musculoskeletal: back normal, normal range of motion, gait/station normal, other - Right foot: There is 2 surgical scars. Well-healed. Mild edema. Mild tenderness to palpation. Ankle stable. Pulse normal. Psychiatric: mood/affect normal Medical Decision Making Diagnostic Impression: Primary Impression: Sprain of foot, right Qualified Codes: S93.601A - Unspecified sprain of right foot, initial encounter ER Course Patient presents with foot pain. No new fracture. No dislocation. Will discharge home. Other X-Ray Diagnostic Results Other X-Ray Diagnostic Results : X-Ray ordered: Right foot x-rays # of Views/Limited Vs Complete: 4 View Indication: Pain EP Interpretation: Yes Interpretation: no dislocation, no soft tissue swelling, no fractures, other - Post operative changes Impression: No acute disease Electronically Signed by: Rudolph Carter MD Last Vital Signs Date Time Temp Pulse Resp B/P (MAP) Pulse Ox O2 Delivery O2 Flow Rate FiO2 08/23/20 05:03 97.9 78 18 136/79 (98) 98 Room Air Status: improved Disposition: HOME, SELF-CARE Condition: Stable Scripts Ibuprofen* (MOTRIN*) 600 Mg Tablet 600 MG ORAL Q6H PRN for For Pain, #30 TAB 0 Refills Prov: Rudolph Carter MD 08/23/20 Patient Instructions: Foot Sprain Additional Instructions: Elevate foot. Ice pack to the area. Follow-up with your back shoe operator in a week. Return if worse. Rudolph Carter MD Aug 23, 2020 05:14
[2020-08-23] MEDS ORDERED: IBUPROFEN600 M1 ORAL (05:29)
[2020-08-23 05:31] VITALS: BP 127/83
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
== END 2020-08-23 05:31 | disposition home or self-care (01) ==
LOC: EMR 05:17
DX: S93.601A Unspecified sprain of right foot, initial encounter (principal); X50.1XXA Overexertion from prolonged static or awkward postures, initial encounter; Y92.9 Unspecified place or not applicable
CPT/HCPCS: 73630; Z7502; 99283

== ENCOUNTER 2020-10-03 12:17 | Emergency (ER) | payer MEDICAID ==
[~2020-10-03] VITALS: Ht 160 cm; Wt 98.4 kg
[2020-10-03 12:34] VITALS: BP 113/73
--- NOTE | 2020-10-03 13:38 | Diagnostic Imaging Report ---
EXAM: CT Head Without Intravenous Contrast CLINICAL HISTORY: PAIN TECHNIQUE: Axial computed tomography images of the head/brain without intravenous contrast. CTDI is 30.60 mGy and DLP is 649.30 mGy-cm. One or more of the following dose reduction techniques were used: automated exposure control, adjustment of the mA and/or kV according to patient size, use of iterative reconstruction technique. COMPARISON: CT head on 05/29/2020 FINDINGS: Brain: No acute infarct or hemorrhage. No extra-axial fluid collection. No mass effect or midline shift. Ventricles and sulci: Normal. No ventriculomegaly or intraventricular hemorrhage. Bones: Normal. No bony lesion or acute fracture. Subcutaneous tissues: Right periorbital soft tissue swelling and hematoma partially visualized. Sinuses: Normal. No air-fluid levels or mucosal thickening. Mastoid air cells: Normal. Orbits: Grossly unremarkable. IMPRESSION: No acute intracranial abnormality.
--- NOTE | 2020-10-03 13:39 | Diagnostic Imaging Report ---
EXAM: CT Maxillofacial Without Intravenous Contrast CLINICAL HISTORY: PAIN TECHNIQUE: Axial computed tomography images of the face without intravenous contrast. CTDI is 30.60 mGy and DLP is 649.30 mGy-cm. One or more of the following dose reduction techniques were used: automated exposure control, adjustment of the mA and/or kV according to patient size, use of iterative reconstruction technique. COMPARISON: CT face on 07/10/2020 FINDINGS: BONES: Normal. No acute facial fracture identified. SINUSES: Normal. No mucosal thickening or air-fluid level. ORBITS: Normal. SOFT TISSUES: Right periorbital soft tissue swelling and hematomas. IMPRESSION: 1. Right periorbital soft tissue swelling and hematomas. 2. No acute facial fracture.
[2020-10-03] MEDS ORDERED: TYLENOL EXTRA500 MG ORAL (14:00)
[2020-10-03 14:10] VITALS: BP 113/73
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
== END 2020-10-03 14:10 | disposition home or self-care (01) ==
LOC: EMR 12:50
DX: S00.83XA Contusion of other part of head, initial encounter (principal); Y04.2XXA Assault by strike against or bumped into by another person, initial encounter; Y93.9 Activity, unspecified; Y92.9 Unspecified place or not applicable
CPT/HCPCS: 70450; 70486; 81025; Z7502; 99284

== ENCOUNTER 2020-11-13 16:51 | Emergency (ER) | payer MEDICAID ==
[~2020-11-13] VITALS: Ht 160 cm; Wt 101.2 kg
--- NOTE | 2020-11-13 17:28 | NUR ---
ED Nurse Note:pt. came from home with vaginal bleeding, lower back and abdominal pain, blood and urine sent to labs, given iv fluids annd meds
[2020-11-13] MEDS ORDERED: Morphine Sulfate 2mg/ml Inj(IV/IM USE ONLY) IVP ONE (17:30)
[2020-11-13 17:33] LABS: BASOPHILS % (AUTO) 0.8 % (0.0-2.0); EOSINOPHILS % (AUTO) 1.4 % (0.0-3.0); HEMATOCRIT 39.5 % (37.0-47.0); HEMOGLOBIN 13.5 G/DL (12.0-16.0); LYMPHOCYTES % (AUTO) 23.5 % (20.0-45.0); MEAN CORPUSCULAR VOLUME 92 FL (80-99); MONOCYTES % (AUTO) 6.9 % (1.0-10.0); NEUTROPHILS % (AUTO) 67.4 % (45.0-75.0); PLATELET COUNT 229 K/UL (150-450); RED BLOOD COUNT 4.31 M/UL (4.20-5.40); WHITE BLOOD COUNT 13.7 K/UL (4.8-10.8)
[2020-11-13 17:35] LABS: APPEARANCE,URINE CLOUDY; BILIRUBIN, URINE NEGATIVE (NEGATIVE); GLUCOSE, URINE (UA) NEGATIVE (NEGATIVE); KETONES,URINE NEGATIVE (NEGATIVE); LEUKOCYTE ESTERASE ,URINE 3+ (NEGATIVE); NITRITE,URINE NEGATIVE (NEGATIVE); PH,URINE 7 (4.5-8.0); PROTEIN,URINE 2+ (NEGATIVE); UROBILINOGEN,URINE NORMAL MG/DL (0.0-1.0)
[2020-11-13 17:49] LABS: COLOR,URINE PINK
[2020-11-13 17:52] LABS: ALANINE AMINOTRANSFERASE 14 U/L (12-78); ALBUMIN 3.3 G/DL (3.4-5.0); ALBUMIN/GLOBULIN RATIO 0.8 (1.0-2.7); ALKALINE PHOSPHATASE 65 U/L (46-116); ASPARTATE AMINO TRANSFERASE 10 U/L (15-37); BILIRUBIN,TOTAL 0.2 MG/DL (0.2-1.0); BLOOD UREA NITROGEN 12 mg/dL (7-18); CALCIUM 8.9 MG/DL (8.5-10.1); CARBON DIOXIDE 25 MMOL/L (21-32)
[2020-11-13 18:17] LABS: CHLORIDE 107 MMOL/L (98-107); POTASSIUM 3.8 MMOL/L (3.5-5.1); SODIUM 141 MMOL/L (136-145)
--- NOTE | 2020-11-13 18:26 | Emergency Room Report ---
History of Present Illness General Chief Complaint: Complications Source: Patient Present Illness HPI 30-year-old female who reports being 10 weeks 3 days here complaining of excessive vaginal bleeding, spotting, passing of tissue earlier this morning. Patient reports that 3 days ago she slipped in the shower and landed on her lower back. Denies any head injury loss of consciousness. Reports that the abdominal cramping and vaginal bleeding started few hours after the fall. Reports that in the past several weeks she has been spotting and been seen by CARDIOVASCULAR TECHNICIAN last time 2 weeks ago and was told that everything was within normal limit however this was done prior to her fall that occurred 3 days ago. Denies nausea vomiting diarrhea. Denies chest pain shortness of breath. Patient is compliant with taking vitamins. Denies alcohol use, drug use. Patient rates pain in lower back 5 out of 10 without radiation. Denies any saddle paresthesia, urinary or bowel incontinence. Denies any urinary symptoms. Allergies: Coded Allergies: No Known Allergies (Unverified , 09/30/17) COVID-19 Screening Contact w/high risk pt: No Recent Travel to affected area: No Experienced COVID-19 symptoms?: No COVID-19 Testing performed HEEL SEAT TRIMMER: Yes COVID-19 Screening: Negative COVID-19 COVID-19 Testing Source: HEART SURGEON Patient History Past Medical History: see triage record Past Surgical History: none Pertinent Family History: none Now: Yes - 10 weeks : 4 Para: 3 Immunizations: UTD Reviewed Nursing Documentation: PMH: Agreed; PSxH: Agreed Nursing Documentation-PMH Past Medical History: No Stated History Hx Cardiac Problems: No Hx Hypertension: No Hx Pacemaker: No Hx Asthma: No Hx COPD: No Hx Diabetes: No Hx Cancer: No Hx Gastrointestinal Problems: Yes - gall stones Hx Dialysis: No Hx Neurological Problems: No Hx Cerebrovascular Accident: No Hx Seizures: No Review of Systems All Other Systems: negative except mentioned in HPI Physical Exam Vital Signs Date Time Temp Pulse Resp B/P (MAP) Pulse Ox O2 Delivery O2 Flow Rate FiO2 11/13/20 17:05 98.8 106 20 142/88 (106) 99 Room Air Sp02 EP Interpretation: reviewed, normal General Appearance: no apparent distress, alert, GCS 15, non-toxic Head: normocephalic, atraumatic Eyes: bilateral eye normal inspection, bilateral eye PERRL ENT: hearing grossly normal, normal pharynx, no angioedema, normal voice Neck: full range of motion, supple/symm/no masses Respiratory: chest non-tender, lungs clear, normal breath sounds, no rhonchi, no respiratory distress, no retraction, speaking full sentences Cardiovascular #1: regular rate, rhythm, no edema Gastrointestinal: non tender, soft, no mass, no organomegaly, no bruit, no guarding, no hernia Rectal: deferred Genitourinary: no CVA tenderness Musculoskeletal: back normal, normal range of motion, pelvis stable, non-tender Neurologic: alert, motor strength/tone normal, oriented x3, sensory intact, responsive, speech normal Psychiatric: judgement/insight normal, memory normal, mood/affect normal, no suicidal/homicidal ideation Skin: no rash Lymphatic: no adenopathy Medical Decision Making PA Attestation All my diagnosis and treatment plans were reviewed ad discussed with my supervising physician Dr. Marina Diagnostic Impression: Primary Impression: Vaginal bleeding during Additional Impression: UTI (urinary tract infection) during ER Course 30-year-old female who reports being 10 weeks 3 days here complaining of excessive vaginal bleeding, spotting, passing of tissue earlier this morning. Patient reports that 3 days ago she slipped in the shower and landed on her lower back. Denies any head injury loss of consciousness. Reports that the abdominal cramping and vaginal bleeding started few hours after the fall. Reports that in the past several weeks she has been spotting and been seen by CARDIOVASCULAR TECHNICIAN last time 2 weeks ago and was told that everything was within normal limit however this was done prior to her fall that occurred 3 days ago. Denies nausea vomiting diarrhea. Denies chest pain shortness of breath. Patient is compliant with taking vitamins. Denies alcohol use, drug use. Patient rates pain in lower back 5 out of 10 without radiation. Denies any saddle paresthesia, urinary or bowel incontinence. Denies any urinary symptoms. Ddx considered but are not limited to: Ectopic , threatened , spontaneous , abdominal pain during urgency, vaginal bleeding during , UTI, Vital signs: are WNL, pt. is afebrile H&PE are most consistent with: UTI during , vaginal bleeding during ORDERS: UA, urine cx hCG quantitative, CBC, CMP, type and screen, OB ultrasound, Tylenol, Keflex, lidocaine patch ED INTERVENTIONS: Morphine, NS bolus, Zofran At this time I did not feel any, patient range of motion reported that he felt better after taking pain medication, at this time no imaging of lower back recommended that patient status however patient working symptoms return to the emergency room. DISCHARGE: At this time pt. is stable for d/c to home. Will provide printed patient care instructions, and any necessary prescriptions. Care plan and follow up instructions have been discussed with the patient prior to discharge. Patient to follow-up with CARDIOVASCULAR TECHNICIAN in 24 to 48 hours for repeat beta-hCG as well as OB ultrasound, if worsening symptoms return to the emergency room CT/MRI/US Diagnostic Results CT/MRI/US Diagnostic Results : Imaging Test Ordered: OB ultrasound Impression IMPRESSION: 1. Reportedly, patient had a positive test on 09/30/2020, fell 3 days ago, and had subsequent vaginal bleeding. 2. No prior obstetric imaging available at the time of interpretation. 3. Patient refused endovaginal evaluation due to severe pain. 4. Possible gestational sac within the endometrial canal, although no definitive elements are discretely identified. 5. Heterogeneous appearing thickened endometrium/ gestational sac which appears to contain the IUD.. 6. Apparent gestational sac would be consistent with 11 week 3 day . 7. No viable fetus definitively identified, no heart rate seen. 8. Recommend obstetrics consultation for further management. Last Vital Signs Date Time Temp Pulse Resp B/P (MAP) Pulse Ox O2 Delivery O2 Flow Rate FiO2 11/13/20 17:05 98.8 106 20 142/88 (106) 99 Room Air Disposition: HOME, SELF-CARE Condition: Stable Scripts Lidocaine Patch* (Lidoderm Patch*) 1 Each Adh..patch 1 PATCH TOPIC DAILY, #30 PATCH Patch(es) may remain in place for up to 12 hours in any 24-hour period. Prov: Antonio Turner 11/13/20 Acetaminophen* (TYLENOL EXTRA STRENGTH*) 500 Mg Tablet 500 MG ORAL Q8H PRN for Prn Headache/Temp > 101, #30 TAB 0 Refills Prov: Antonio Turner 11/13/20 Cephalexin* (KEFLEX*) 500 Mg Capsule 500 MG ORAL EVERY 12 HOURS for 7 Days, #14 CAP 0 Refills Prov: Antonio Turner 11/13/20 Referrals: [facility],REFERRING (PCP) Patient Instructions: Urinary Tract Infection, [id number], Vaginal Bleeding During , First Trimester, [id number] Additional Instructions: Take medication as directed, follow-up with primary care provider or CARDIOVASCULAR TECHNICIAN in 24 to 48 hours, if worsening symptoms return to the emergency room Antonio Turner Nov 13, 2020 18:26
[2020-11-13] MEDS ORDERED: LIDODERM700 M1 TOPIC (18:28)
[2020-11-13] MEDS ORDERED: TYLENOL EXTRA500 MG ORAL (18:28)
[2020-11-13] MEDS ORDERED: CEPHALEXIN500 MG ORAL (18:28)
--- NOTE | 2020-11-13 19:00 | Diagnostic Imaging Report ---
ADDENDUM - Added by Adilson Ronquillo MD on 11/13/2020 7:12 PM (-08:00) Addendum: 1. Given lack of clear gestational sac/ pole, ectopic cannot be definitively excluded. 2. No findings to suggest peritoneal hemorrhage, no extrauterine gestation identified. 3. Remainder of the report is unchanged. EXAM: US First Trimester , Transabdominal CLINICAL HISTORY: PAIN TECHNIQUE: Real-time transabdominal obstetrical ultrasound of the maternal pelvis and a first trimester with image documentation. COMPARISON: No relevant prior studies available. FINDINGS: Gestation: Reportedly, patient had a positive test on 09/30/2020, fell 3 days ago, and had subsequent vaginal bleeding. Possible gestational sac within the endometrial canal, although no definitive elements are discretely identified. MSD 5.75 cm, 11 weeks 3 days. Placenta/amniotic fluid: Cannot be adequately evaluated due to the early gestational age. Uterus/cervix: Heterogeneous appearing thickened endometrium which appears to contain the IUD, endometrium 2.5 cm diameter. No myometrial mass. Ovaries: Unremarkable. No mass. Free fluid: No free fluid. Other findings: Patient refused endovaginal evaluation due to severe pain. IMPRESSION: 1. Reportedly, patient had a positive test on 09/30/2020, fell 3 days ago, and had subsequent vaginal bleeding. 2. No prior obstetric imaging available at the time of interpretation. 3. Patient refused endovaginal evaluation due to severe pain. 4. Possible gestational sac within the endometrial canal, although no definitive elements are discretely identified. 5. Heterogeneous appearing thickened endometrium/ gestational sac which appears to contain the IUD.. 6. Apparent gestational sac would be consistent with 11 week 3 day . 7. No viable fetus definitively identified, no heart rate seen. 8. Recommend obstetrics consultation for further management. <MYCVCSECTION> Communications: 11/13/20 19:03 Call Doctor Regarding demise, called REGINA Alvarez on 11/13 19:02 (-08:00)
--- NOTE | 2020-11-13 19:10 | NUR ---
ED Nurse Note:report taken from emma pt is stable aoX3, no complaints waiting for discharge instructions
[2020-11-13 19:21] VITALS: BP 140/78
== END 2020-11-13 19:18 | disposition home or self-care (01) ==
LOC: EMR 17:15
DX: O20.9 Hemorrhage in early pregnancy, unspecified (principal); O23.41 Unspecified infection of urinary tract in pregnancy, first trimester; Z3A.10 10 weeks gestation of pregnancy
CPT/HCPCS: 36415; 76801; 80053; 81003; 84702; 85025; 86850; 86900; 86901; 87086; 96361; 96374; 96375; J2270; J2405; J7030; Z7502; 99284